=== PATIENT | female | born 1995 | race Caucasian/White ===

== ENCOUNTER → 2023-01-10 | Outpatient (CLI) | payer OTHER, SELFPAY ==
[2023-01-10 16:31] LABS: Absolute Lymphocyte Count 2.09 X10^3/uL (0.83-4.51); Absolute Neutrophil Count 2.4 X10^3/uL (2.0-7.7); Basophil# 0.06 X10^3/uL; Basophil% 1.2 % (0-1); Eosinophil# 0.32 X10^3/uL; Eosinophils% 6.2 % (0-5); Hematocrit 37.4 % (37-47); Hemoglobin 12.4 g/dL (12.0-15.0); Lymphocyte # 2.09 X10^3/ul (0.83-4.51); Lymphocyte % 40.2 % (19-41); Mean Corp Hgb Conc 33.2 g/dL (32-36); Mean Corpuscular Hgb 31.6 pg (27.0-32.0); Mean Corpuscular Volume 95.4 fL (81-99); Mean Platelet Vol. 9.8 fl (6.2-12.0); Monocyte# 0.34 X10^3/uL; Monocyte% 6.5 % (0-10); NRBC Flagged by Analyzer 0 % (0-5); Neutrophil # 2.38 X10^3/uL (2.7-7.7); Neutrophil % 45.7 % (47-70); Platelet Count 301 K/mm3 (150-450); RBC Distribution Width CV 12.7 % (11.6-14.6); RBC Distribution Width SD 44.3 fl (35.1-43.9); Red Blood Count 3.92 M/mm3 (4.2-5.4); White Blood Count 5.2 K/mm3 (4.4-11.0)
[2023-01-10 17:18] LABS: Vitamin D,25 Hydroxy 23.2 ng/mL
[2023-01-10 17:21] LABS: AST(SGOT) 11 U/L (15-37); Alanine Aminotransfer ALT/SGPT 18 U/L (13-56); Albumin, Serum 3.8 g/dL (3.2-5.0); Alkaline Phosphatase 66 U/L (45-117); Anion Gap 4 (5-15); BUN 9 mg/dL (7-18); BUN/Creat Ratio 13.4 RATIO (10-20); Calcium,Total 9.1 mg/dL (8.5-10.1); Chloride 109 mmol/L (98-107); Creatinine, Serum 0.67 mg/dL (0.55-1.02); EST Glomerular Filtration Rate 109 mL/min (>60); Est Glom Filt Rate - Afr Amer 132 mL/min (>60); Globulin 3.9 g/dL (2.2-4.2); Glucose 86 mg/dL (74-106); Protein, Total 7.7 g/dL (6.4-8.2); Sodium Level 138 mmol/L (136-145); Thyroid Stim Hormone (TSH) 1.53 uIU/mL (0.358-3.74)
== END | disposition home or self-care (01) ==
LOC: BIMLAB 16:07
PROVIDERS: Visit Provider Internal Medicine
DX: F32.A Depression, unspecified (principal); F41.9 Anxiety disorder, unspecified
CPT/HCPCS: 36415; 80053; 82306; 84443; 85025

== ENCOUNTER → 2023-08-24 | Outpatient (CLI) | payer OTHER, SELFPAY ==
--- OUTSIDE RECORDS SUMMARY | 2023-08-24 09:30 | XMS RPT_ITS | CCD ---
Author Name Unknown Address [facility] [place] [address] Organization [facility] Care Team Providers Care Lead Ramp Service Man Name Role Phone Aj CHAKRABORTY, Shanice Reeves Primary Care Provider Medications Current Medications Medication Drug Class(es) Dates Sig (Normalized) Sig (Original) NORGESTIMATE-ETHINY L ESTRADIOL (TRI-SPRINTEC, 28, ORAL) (1 source) End: 12-31-2021 NORGESTIMATE-ETHINYL ESTRADIOL (TRI-SPRINTEC, 28, ORAL) Take by mouth. 0 12/31/2021 Discontinued Completed/Discontinued Medications Medication Drug Class(es) Dates Sig (Normalized) Sig (Original) Ethinyl Estradiol / norgestimate (1 source) Progestin, Estrogen Start: 05-26-2021 Norgestimate-Ethin yl Estradiol (TRI-ESTARYLLA) 0.18/0.215/0.25 mg-35 mcg (28) Problems Problem Classification Problem Date Documented Da te Episodic/Chronic Immunizations and screening for infectious disease (5 sources) Patient encounter status; Translations: [Encounter for immunization] Episodic Other skin disorders (1 source) Skin lesion; Translations: [Disorder of the skin and subcutaneous tissue, unspecified] Episodic Results Test Name Value Interpretation Reference Range Facil ity Vital Signs Date Time Vital Sign Value Performing Clinician Luis romero 12-31-2021 07:59-0400 Body height 165.1 cm Brenna Gallo SOFTWARE ARCHITECT.BALL SORTER Work Phone: [facility] 12-31-2021 07:59-0400 Body weight 57.15 kg Brenna Gallo SOFTWARE ARCHITECT.BALL SORTER Work Phone: [facility] 12-31-2021 07:59-0400 Diastolic blood pressure 82 mm[Hg] Brenna Gallo SOFTWARE ARCHITECT.BALL SORTER Work Phone: [facility] 12-31-2021 07:59-0400 Heart rate 68 /min Brenna Gallo SOFTWARE ARCHITECT.BALL SORTER Work Phone: [facility] 12-31-2021 07:59-0400 Respiratory rate 16 /min Brenna Llamass SOFTWARE ARCHITECT.BALL SORTER Work Phone: [facility] 12-31-2021 07:59-0400 SaO2% (BldA) [Mass fraction] 100 % Brenna Gallo SOFTWARE ARCHITECT.BALL SORTER Work Phone: [facility] 12-31-2021 07:59-0400 Systolic blood pressure 120 mm[Hg] Brenna Gallo SOFTWARE ARCHITECT.BALL SORTER Work Phone: [facility] Encounters Encounter Date Encounter Type Care Provider Facility Start: 12-31-2021 End: 12-31-2021 Patient encounter procedure Brenna Gallo SOFTWARE ARCHITECT.BALL SORTER Work Phone: [facility] Procedures Date Procedure Procedure Detail Performing Clinician Start: 12-31-2021 Adult depression screening assessment Brenna Gallo SOFTWARE ARCHITECT.BALL SORTER Work Phone: Plan of Treatment Date Care Activity Detail Author Start: 12-31-2022 Adult depression scr eening assessment DEPRESSION SCREENING [facility] Start: 08-09-2022 COVID-19 VACCINE (#1) COVID-19 VACCI NE (#1) [facility] Payers Date Payer Category Payer Unknown [employer] PPO OOS [id number] 2018-Present [phone] [address] [place] [address] PPO [id number] Social History Date Type Detail Facility Start: 06-24-2014 Tobacco smoking stat us NMIS Never smoked tobacco [facility] Start: 06-24-2014 Tobacco use and exposure Smoke less tobacco non-user [facility] Start: 12-31-2021 Alcohol intake Current drinke r of alcohol (finding) [facility] Start: 12-31-2021 Alcohol intake [facility] Start: 12-24-2021 History SDOH Alcohol Frequency 3 [facility] Start: 12-24-2021 History SDOH Alcohol Std Drinks 2 [facility] Start: 12-24-2021 History SDOH Alcohol Binge 1 [facility] Start: 12-24-2021 History SDOH Social Connections Living 8 [facility] Start: 12-24-2021 History SDOH Stress 4 [facility] Start: 1995 Sex Assigned At Not on file [facility] Start: 12-21-2021 End: 12-31-2021 Exposure to SARS-CoV-2 (event) Not sure [facility] Work Phone: Progress note 01-14-2022 Note Date & Type Note Facility 01-14-2022 Note HNO ID: [id number] Author: Joy Munoz APRN.MIXING PLANT OPERATOR Service: ? Author Type: Nurse Practitioner Type: Progress Notes Filed: 01/14/2022 9:44 AM Note Text: Naveed is a 26 year old who presents for an annual gynecologic exam without complaints. -Last ESTIMATOR [facility] at [facility] when she was 19. She reports having a normal pap smear at that visit. -Mother diagnosed with stage 4 metastatic breast cancer at age 47. Mother at age 57. Moms sister also diagnosed with breast cancer. Menses: cycles every 21 days and extremely light 3-4 days of flow. Contraception: combined hormonal contraceptives HPV vaccine: No Last Pap: normal HPV: N/A History of abnormal pap: No Last mammogram: never Sexually active: Yes History of STDS: Chlamydia at age 18 Number of lifetime partners: 4 History of fibroids: No History of ovarian cyst: No History of endometriosis: No History of infertility: No History of PCOS: No History of dairy nutrition specialist malignancy: none Pain with intercourse: No Postcoital bleeding: No OB History T0 L0 SAB0 IAB0 Ectopic0 Multiple0 Live Births0 Oncology Nurse History LMP: 01/06/2022, Having periods Age at Menarche: Age at First : Age at Menopause: Oncology Nurse History Comments: Sexual Activity: Yes; Male Contraception: Pill PAST MEDICAL HISTORY Diagnosis Date - NEGATIVE HISTORY OF PAST SURGICAL HISTORY Procedure Laterality Date - NONE FAMILY HISTORY Problem Relation Age of Onset - Breast Cancer Mother age ~47 yo; now - No Known Problems Father SOCIAL HISTORY Social History Tobacco Use - Smoking status: Never Smoker - Smokeless tobacco: Never Used Vaping Use - Vaping Use: Never used Substance Use Topics - Alcohol use: Yes Alcohol/week: 4.0 standard drinks Types: 4 Glasses of Wine (5oz) per week - Drug use: Never REVIEW OF SYSTEMS Abdomen: No abdominal pain, nausea, vomiting, diarrhea, or constipation. No bloating, early satiety, indigestion, or increased flatulence. Bladder: No dysuria, gross hematuria, urinary frequency, urinary urgency, or incontinence. Breast: No breast lumps, nipple d/c, overlying skin changes, redness or skin retraction. Allergies and current medication updated:Yes EXAM: Ht 5' 4.5 (1.64m) Wt 130 lb 6.4 oz (59.1kg) LMP 01/06/2022 BMI 22.05 kg/(m2). GENERAL: pleasant, female in no apparent distress HEENT: Normocephalic, atraumatic, mucus membranes moist and no lesions NECK: full range of motion DERMATOLOGY: Normal, without lesions, non-icteric and non-hirsute BREAST: soft, non-tender, symmetric, no dominant mass, normal nipple-areolar complex, no lymphadenopathy and no nipple discharge CHEST: Normal inspiratory effort ABDOMEN: soft, non-tender and no masses PELVIC: external genitalia normal, normal Bartholin's glands, urethra, Opal's glands, no vulvar lesions, no cervical lesions, good vaginal support, physiologic discharge present, normal appearing perineal body and perianal region BIMANUAL: uterus normal size, shape and consistency, no adnexal masses and non-tender NEURO: alert and oriented x3,exam grossly non-focal EXTREMITIES: normal ASSESSMENT/PLAN: 1) Health maintenance: Pap done. Smoking cessation: Smoking cessation encouraged and resources provided. Patient does not smoke. HPV vaccine: discussed, not interested 2) Contraception: combined hormonal contraceptives. Contraceptive options reviewed and information provided. 3) STD screening: Accepted STD check for Gonorrhea and Chlamydia. 4) Follow up one year or sooner as needed -Discussed family history of breast cancer. -Genetic counseling ordered today. Pat Hyman. IN STORE BANKER student TEACHING PROVIDER (Physician/PA/SOFTWARE ARCHITECT) NOTE OF PERSONAL INVOLVEMENT IN CARE: I have personally seen and examined the patient and performed the medical decision-making components. I have reviewed the Advanced Practice Registered Nurse (SOFTWARE ARCHITECT) Student's documentation and verified the findings in the note as written. Any additions or changes are noted in bold/italics. Signature: Joy Munoz Date: 01/14/2022 Time: 9:43 AM [facility] Progress note 12-31-2021 Note Date & Type Note Facility 12-31-2021 Note HNO ID: [id number] Author: Brenna Gallo APRN.BALL SORTER Service: ? Author Type: Nurse Specialist Type: Progress Notes Filed: 12/31/2021 9:03 AM Note Text: SUBJECTIVE: COVID-19 VACCINE(1) Never done HEPATITIS C SCREENING Never done HIV SCREENING Never done DTAP,TDAP,TD(1 - Tdap) Never done PAP TESTING Never done HPI Naveed Daugherty is a 26 year old female. Has been seen at [facility] only, no other visits. Presents today to establish care at [facility]. Previous PCP:[facility] Last seen: 15 yrs ago [facility]: about 5 to 10 years ago Labwork: no recent ER/Hospitalization: no Outside records: no No ESTIMATOR Was [facility]. Going to [facility] grief counselor. Mom passed in June. She notes this is helping, not interested in medication at this time. She notes she is been generally in good health. Notes a small mole on the back of her neck present for a few months no changes not painful She notes completing all routine immunizations. Review of Systems Constitutional: Negative. Psychiatric/Behavioral: Positive for dysphoric mood. Objective BP 120/82 Pulse 68 Resp 16 Ht 165.1 cm (5' 5 ) Wt 57.2 kg (126 lb) LMP 10/02/2017 SpO2 100% BMI 20.97 kg/m? Physical Exam Vitals and nursing note reviewed. HENT: Head: Normocephalic and atraumatic. Eyes: Conjunctiva/sclera: Conjunctivae normal. Neck: Thyroid: No thyroid mass or thyromegaly. Vascular: Normal carotid pulses. No JVD. Cardiovascular: Rate and Rhythm: Normal rate and regular rhythm. Pulses: Carotid pulses are 2+ on the right side and 2+ on the left side. Radial pulses are 2+ on the right side and 2+ on the left side. Heart sounds: Normal heart sounds. Pulmonary: Effort: Pulmonary effort is normal. Breath sounds: Normal breath sounds. Musculoskeletal: Right lower leg: No edema. Left lower leg: No edema. Skin: General: Skin is warm and dry. Neurological: General: No focal deficit present. Mental Status: She is oriented to person, place, and time. ALLERGIES No Known Allergies Medications Norgestimate-Ethinyl Estradiol (TRI-ESTARYLLA) 0.18/0.215/0.25 mg-35 mcg (28), PAST MEDICAL HISTORY Diagnosis Date - NEGATIVE HISTORY OF PAST SURGICAL HISTORY Procedure Laterality Date - NONE Social History Tobacco Use - Smoking status: Never Smoker - Smokeless tobacco: Never Used Substance Use Topics - Alcohol use: Yes Alcohol/week: 4.0 standard drinks Types: 4 Glasses of Wine (5oz) per week - Drug use: Never FAMILY HISTORY Problem Relation Age of Onset - Breast Cancer Mother age ~47 yo - No Known Problems Father ASSESSMENT/PLAN: 1. Routine medical exam - ICD9: V70.0, ICD10: Z00.00 (primary diagnosis) Plant-based diet and routine exercise endorsed. 3. Special screening examination for viral disease - ICD9: V73.99, ICD10: Z11.59 - HEP C AB IA W/CONF SCRN 4. Screening for HIV (human immunodeficiency virus) - ICD9: V73.89, ICD10: Z11.4 - HIV 1 2 COMBO(AG/AB),WITH REFLEX TO DIFFERENTIATION 5. Well woman exam with routine gynecological exam - ICD9: V72.31, ICD10: Z01.419 - CONSULT TO ESTIMATOR 6. Encounter for screening for diabetes mellitus - ICD9: V77.1, ICD10: Z13.1 - BASIC METABOLIC PNL 7. Screening for lipid disorders - ICD9: V77.91, ICD10: Z13.220 - LIPID PANEL, NONFASTING 8. Skin lesion - ICD9: 709.9, ICD10: L98.9 - CONSULT TO DERMATOLOGY Labs today. 1 year follow-up with PCP. Brenna Gallo APRN.[facility] History of Present illness Narrative 12-31-2021 Brenna Gallo APRN.BALL SORTER - 12/31/2021 8:00 AM EDT Note Date & Type Note Facility 12-31-2021 History of Presen t illness Narrative SUBJECTIVE: COVID-19 VACCINE(1) Never done HEPATITIS C SCREENING Never done HIV SCREENING Never done DTAP,TDAP,TD(1 - Tdap) Never done PAP TESTING Never done HPI Naveed Daugherty is a 26 year old female. Has been seen at [facility] only, no other visits. Presents today to establish care at [facility]. Previous PCP:[facility] Last seen: 15 yrs ago [facility]: about 5 to 10 years ago Labwork: no recent ER/Hospitalization: no Outside records: no No ESTIMATOR [facility]. Going to [facility] grief counselor. Mom passed in June. She notes this is helping, not interested in medication at this time. She notes she is been generally in good health. Notes a small mole on the back of her neck present for a few months no changes not painful She notes completing all routine immunizations. Review of Systems Constitutional: Negative. Psychiatric/Behavioral: Positive for dysphoric mood. Objective BP 120/82 Pulse 68 Resp 16 Ht 165.1 cm (5' 5 ) Wt 57.2 kg (126 lb) LMP 10/02/2017 SpO2 100% BMI 20.97 kg/m Physical Exam Vitals and nursing note reviewed. HENT: Head: Normocephalic and atraumatic. Eyes: Conjunctiva/sclera: Conjunctivae normal. Neck: Thyroid: No thyroid mass or thyromegaly. Vascular: Normal carotid pulses. No JVD. Cardiovascular: Rate and Rhythm: Normal rate and regular rhythm. Pulses: Carotid pulses are 2+ on the right side and 2+ on the left side. Radial pulses are 2+ on the right side and 2+ on the left side. Heart sounds: Normal heart sounds. Pulmonary: Effort: Pulmonary effort is normal. Breath sounds: Normal breath sounds. Musculoskeletal: Right lower leg: No edema. Left lower leg: No edema. Skin: General: Skin is warm and dry. Neurological: General: No focal deficit present. Mental Status: She is oriented to person, place, and time. ALLERGIES No Known Allergies Medications Norgestimate-Ethinyl Estradiol (TRI-ESTARYLLA) 0.18/0.215/0.25 mg-35 mcg (28), PAST MEDICAL HISTORY Diagnosis Date NEGATIVE HISTORY OF PAST SURGICAL HISTORY Procedure Laterality Date NONE Social History Tobacco Use Smoking status: Never Smoker Smokeless tobacco: Never Used Substance Use Topics Alcohol use: Yes Alcohol/week: 4.0 standard drinks Types: 4 Glasses of Wine (5oz) per week Drug use: Never FAMILY HISTORY Problem Relation Age of Onset Breast Cancer Mother age ~47 yo No Known Problems Father ASSESSMENT/PLAN: 1. Routine medical exam - ICD9: V70.0, ICD10: Z00.00 (primary diagnosis) Plant-based diet and routine exercise endorsed. 3. Special screening examination for viral disease - ICD9: V73.99, ICD10: Z11.59 - HEP C AB IA W/CONF SCRN 4. Screening for HIV (human immunodeficiency virus) - ICD9: V73.89, ICD10: Z11.4 - HIV 1 2 COMBO(AG/AB),WITH REFLEX TO DIFFERENTIATION 5. Well woman exam with routine gynecological exam - ICD9: V72.31, ICD10: Z01.419 - CONSULT TO ESTIMATOR 6. Encounter for screening for diabetes mellitus - ICD9: V77.1, ICD10: Z13.1 - BASIC METABOLIC PNL 7. Screening for lipid disorders - ICD9: V77.91, ICD10: Z13.220 - LIPID PANEL, NONFASTING 8. Skin lesion - ICD9: 709.9, ICD10: L98.9 - CONSULT TO DERMATOLOGY Labs today. 1 year follow-up with PCP. Brenna Gallo APRN.CNS documented in this encounter [facility] Evaluation note Note Date & Type Note Facility documented in this encounter [facility] Reason for Referral Specialty Diagnoses / Procedures Referred By Monica powers Referred To Contact Dermatology Diagnoses Skin lesion Procedures CONSULT TO DERMATOLOGY Brenna Gallo APRN.CNS [address] [place] [address] Referral ID Status Reason Start Date Expiration Date Visits Requested Visits Authorized [id number] Ref Not Required PCP Requested Referral 12/31/2021 12/31/2022 1 1 Specialty Diagnoses / Procedures Referred By Contac t Referred To Contact Diagnoses Well woman exam with routine gynecological exam Procedures CONSULT TO ESTIMATOR OFFICE/OUTPATIENT NEW HIGH MDM 60-74 MINUTES Brenna Gallo, SOFTWARE ARCHITECT.BALL SORTER [address] [place] [address] Referral ID Status Reason Start Date Expiration Date Visits Requested Visits Authorized [id number] Authorized PCP Requested Referral Auto-Generate d Referral 12/31/2021 12/31/2022 1 1 Summary Purpose Family History No Family History Records Found Advance Directives No Advanced Directives Records Found Additional Source Comments Source Comments (unrecognize d section and content) In the event this informatio n is protected by the Federal Confidentiality of Alcohol and Drug Abuse Patient Records regulations: The Federal rules restrict any use of the information to criminally investigate or prosecute any alcohol or drug abuse patient.[facility] Reason for Visit (unrecogniz ed section and content) Care Teams (unrecognized sec tion and content) INFORMATION SOURCE (unrecogn ized section and content) FOR RECORDS PERTAINING TO PATIENTS WHO ARE OR HAVE BEEN ENROLLED IN A CHEMICAL DEPENDENCY/SUBSTANCEABUSE PROGRAM, SOME INFORMATION MAY BE OMITTED. This clinical summary was aggregated from multiple sources. Caution should be exercised in using it in the provision of clinical care. This summary normalizes information from multiple sources, and as a consequence, information in this document may materially change the coding, format and clinical context of patient data. In addition, data may be omitted in some cases. CLINICAL DECISIONS SHOULD BE BASED ON THE PRIMARY CLINICAL RECORDS. [employer] provides no warranty or guarantee of the accuracy or completeness of information in this document.
[2023-08-24 12:22] LABS: Erythrocyte Sedimentation Rate 4 mm/hr (0-30)
[2023-08-24 12:55] LABS: Vitamin D,25 Hydroxy 23.4 ng/mL
[2023-08-24 12:58] LABS: Anion Gap 5 (5-15); BUN 8 mg/dL (7-18); BUN/Creat Ratio 10.1 RATIO (10-20); CRP < 2.90 mg/L (0.0-3.0); Chloride 107 mmol/L (98-107); EST Glomerular Filtration Rate 90 mL/min (>60); Est Glom Filt Rate - Afr Amer 109 mL/min (>60); Glucose 66 mg/dL (74-106); Magnesium 2.3 mg/dL (1.6-2.6); Potassium 3.8 mmol/L (3.5-5.1); Sodium Level 138 mmol/L (136-145)
[2023-08-25 11:08] LABS: ANTINUCLEAR ANTIBODIES DIRECT Negative (Negative)
== END | disposition home or self-care (01) ==
LOC: BIMLAB 09:00
PROVIDERS: Nurse Practitioner Women's Health; PCP Internal Medicine; Visit Provider Internal Medicine
DX: M25.50 Pain in unspecified joint (principal); Z13.21 Encounter for screening for nutritional disorder
CPT/HCPCS: 36415; 80048; 82306; 83735; 85652; 86038; 86140; 86225; 86235

== ENCOUNTER → 2024-02-20 | Outpatient (CLI) | payer OTHER, SELFPAY ==
[2024-02-20 12:01] LABS: Absolute Lymphocyte Count 1.77 X10^3/uL (0.83-4.51); Absolute Neutrophil Count 1.8 X10^3/uL (2.0-7.7); Basophil# 0.05 X10^3/uL; Basophil% 1.2 % (0-1); Eosinophil# 0.38 X10^3/uL; Eosinophils% 8.9 % (0-5); Hematocrit 37.7 % (37-47); Hemoglobin 11.9 g/dL (12.0-15.0); Lymphocyte # 1.77 X10^3/ul (0.83-4.51); Lymphocyte % 41.4 % (19-41); Mean Corp Hgb Conc 31.6 g/dL (32-36); Mean Corpuscular Hgb 29.8 pg (27.0-32.0); Mean Corpuscular Volume 94.5 fL (81-99); Mean Platelet Vol. 10.4 fl (6.2-12.0); NRBC Flagged by Analyzer 0 % (0-5); Neutrophil # 1.77 X10^3/uL (2.7-7.7); Neutrophil % 41.3 % (47-70); Platelet Count 309 K/mm3 (150-450); RBC Distribution Width CV 12.9 % (11.6-14.6); RBC Distribution Width SD 44.6 fl (35.1-43.9); Red Blood Count 3.99 M/mm3 (4.2-5.4); White Blood Count 4.3 K/mm3 (4.4-11.0)
[2024-02-20 12:31] LABS: Vitamin D,25 Hydroxy 31.8 ng/mL
[2024-02-20 13:49] LABS: ALB/GLOB Ratio 0.9 RATIO (0.9-2.4); AST(SGOT) 18 U/L (15-37); Alanine Aminotransfer ALT/SGPT 13 U/L (13-56); Albumin, Serum 3.5 g/dL (3.2-5.0); Alkaline Phosphatase 68 U/L (45-117); Anion Gap 8 (5-15); BUN 10 mg/dL (7-18); BUN/Creat Ratio 12.9 RATIO (10-20); CPK Total, Creatine Kinase 72 U/L (26-192); Calcium,Total 9.3 mg/dL (8.5-10.1); Chloride 105 mmol/L (98-107); Creatinine, Serum 0.77 mg/dL (0.55-1.02); EST Glomerular Filtration Rate 93 mL/min (>60); Est Glom Filt Rate - Afr Amer 112 mL/min (>60); Globulin 3.8 g/dL (2.2-4.2); Glucose 76 mg/dL (74-106); Potassium 4.5 mmol/L (3.5-5.1); Protein, Total 7.3 g/dL (6.4-8.2); Rheumatoid Factor < 10.0 IU/mL (<15); Sodium Level 137 mmol/L (136-145)
[2024-02-21 15:09] LABS: CCP IgG Antibodies 4 units (0-19); Lyme Scn Total Ab w/Rflx Negative (Negative)
== END | disposition home or self-care (01) ==
LOC: BIMLAB 09:54
PROVIDERS: Obstetrics & Gynecology; PCP Internal Medicine; Referring Provider Internal Medicine; Visit Provider Internal Medicine
DX: M25.50 Pain in unspecified joint (principal); E55.9 Vitamin D deficiency, unspecified
CPT/HCPCS: 36415; 80053; 82306; 82550; 85025; 86200; 86431; 86618

== ENCOUNTER → 2025-02-20 | Outpatient (CLI) | payer OTHER, SELFPAY ==
--- NOTE | 2025-02-20 09:36 | EKG12_ITS ---
Test Reason : PREOP Blood Pressure : */* mmHG Vent. Rate : 70 BPM Atrial Rate : 70 BPM P-R Int : 130 ms QRS Dur : 68 ms QT Int : 362 ms P-R-T Axes : 48 81 42 degrees QTcB Int : 390 ms Normal sinus rhythm Normal ECG No previous ECGs available Confirmed by Eduardo Hodges ([id number]), editorial assistant ANG GIBBONS ([id number]) on 02/21/2025 8:32:41 AM Referred By: Karen Wall Confirmed By: Eduardo Hodges
--- NOTE | 2025-02-20 09:36 | EKG12_ITS ---
Test Reason : PREOP Blood Pressure : */* mmHG Vent. Rate : 70 BPM Atrial Rate : 70 BPM P-R Int : 130 ms QRS Dur : 68 ms QT Int : 362 ms P-R-T Axes : 48 81 42 degrees QTcB Int : 390 ms Normal sinus rhythm Normal ECG No previous ECGs available Confirmed by Eduardo Hodges ([id number]), editorial cartoonist ANG GIBBONS ([id number]) on 02/21/2025 8:32:41 AM Referred By: Karen Wall Confirmed By: Eduardo Hodges
--- NOTE | 2025-02-20 09:55 | RAD_ITS ---
PROCEDURE: CERV SPINE 4 OR 5 VIEWS 02/20/2025 REASON FOR EXAM: CHRONIC PAIN TECHNIQUE: CERV SPINE 4 OR 5 VIEWS COMPARISON: None. FINDINGS: No evidence of fracture or subluxation. Vertebral body heights are preserved. Alignment is anatomic, although there is straightening of the cervical lordosis which may be positional or secondary to muscle strain. No significant degenerative changes appreciated, well preserved disc spaces. No prevertebral soft tissue swelling. No unusual mineralization. RAD/Cerv Spine 4 or 5 Views IMPRESSION: No evidence of fracture, subluxation or significant degenerative changes. Straightening of the cervical lordosis may be positional or related to muscle s pasm. Reading Location: [id number]
--- NOTE | 2025-02-20 09:55 | RAD_ITS ---
PROCEDURE: CERV SPINE 4 OR 5 VIEWS 02/20/2025 REASON FOR EXAM: CHRONIC PAIN TECHNIQUE: CERV SPINE 4 OR 5 VIEWS COMPARISON: None. FINDINGS: No evidence of fracture or subluxation. Vertebral body heights are preserved. Alignment is anatomic, although there is straightening of the cervical lordosis which may be positional or secondary to muscle strain. No significant degenerative changes appreciated, well preserved disc spaces. No prevertebral soft tissue swelling. No unusual mineralization. RAD/Cerv Spine 4 or 5 Views IMPRESSION: No evidence of fracture, subluxation or significant degenerative changes. Straightening of the cervical lordosis may be positional or related to muscle s pasm. Reading Location: [id number]
[2025-02-20 10:24] LABS: Hematocrit 36.7 % (37-47); Hemoglobin 12.6 g/dL (12.0-15.0); Immature Granulocytes Count 0.010 X10^3/uL (0.0-0.0); Mean Corp Hgb Conc 34.3 g/dL (32-36); Mean Corpuscular Volume 92.9 fL (81-99); Mean Platelet Vol. 9.9 fl (6.2-12.0); NRBC Flagged by Analyzer 0 % (0-5); Platelet Count 272 K/mm3 (150-450); RBC Distribution Width CV 12.7 % (11.6-14.6); RBC Distribution Width SD 43.2 fl (35.1-43.9); Red Blood Count 3.95 M/mm3 (4.2-5.4); White Blood Count 5.2 K/mm3 (4.4-11.0)
[2025-02-20 14:27] LABS: AST(SGOT) 26 U/L (<=31); Alanine Aminotransfer ALT/SGPT 32 U/L (<=34); Albumin, Serum 4.6 g/dL (3.5-5.0); Alkaline Phosphatase 71 U/L (35-104); Anion Gap 10 (5-15); BUN 9 mg/dL (4-19); BUN/Creat Ratio 13.9 RATIO (10-20); Calcium,Total 9.5 mg/dL (7.6-11.0); Carbon Dioxide 23.0 mmol/L (21.0-32.0); Chloride 103 mmol/L (98-108); Globulin 2.9 g/dL (2.2-4.2); Glucose 87 mg/dL (70-99); Potassium 4.3 mmol/L (3.3-5.1); Vitamin D,25 Hydroxy 17.1 ng/mL (30-100)
--- OUTSIDE RECORDS SUMMARY | 2025-02-20 19:18 | XMS RPT_ITS | CCD ---
Author Organization [facility] Care Team Providers Care Windows Desktop Support Name Role Phone Shanice Rocha MD Primary Care Provider Care Physician, No Primary Primary Care Provider Unavailable Care Physician, No Primary Referring Provider Un available Dr. Karen Wall Attending Provider Care Physician, No Primary Referring Provider Un available Olaf PACKAGE LINER, CHRISTY Mccauley Attending Provider [phone] Dr. Karen Wall Primary Care Provider Dr. Karen Wall Attending Provider Dr. Karen Wall Referring Provider [phone] Mae, Karen Primary Care Unavailable [place], Karen Attending Unavailable [place], Karen Referring Unavailable Mae, Karen Primary Care Unavailable [place], Karen Attending Unavailable Mae, Karen Primary Care Unavailable [place], Karen Attending Unavailable Mae, Karen Referring Unavailable [place], Karen Referring Unavailable Mae, Karen Primary Care Unavailable [place], Karen Attending Unavailable [place], Karen Primary Care Unavailable Parisa Babin Attending Unavailable Mae, Karen Referring Unavailable Dr. Karen Wall MD Primary Care Provider [phone] Dr. Karen Wall MD Attending Provider Dr. Karen Wall MD Referring Provider Medications Current Medications Medication Drug Class(es) Dates Sig (Normalized) Sig (Original) [place] (Nk) (1 source) Start: 07-03-2024 [place] (Nk) Active July 03, 2024 1:00am NORGESTIMATE-ETHINYL ESTRADIOL (TRI-SPRINTEC, 28, ORAL) (1 source) End: 12-31-2021 NORGESTIMATE-ETHINYL ESTRADIOL (TRI-SPRINTEC, 28, ORAL) Take by mouth. 0 12/31/2021 Discontinued Comment on above: Take by mouth. phenazopyridine hydrochloride 200 mg oral tablet (1 source) Start: 09-09-2016 End: 12-31-2021 take 1 tablet by mouth three times daily phenazopyridine (PYRIDIUM) 200 mg tablet TO BE TAKEN DIRECTED BY MOUTH ONE(1) TABLET THREE TIMES DAILY X 2 DAYS 6 tablet 0 09/09/2016 12/31/2021 Discontinued Comment on above: TO BE TAKEN DIREC CRISTÓBAL BY MOUTH ONE(1) TABLET THREE TIMES DAILY X 2 DAYS Completed/Discontinued Medications Medication Drug Class(es) Dates Sig (Normalized) Sig (Original) escitalopram 5 mg oral tablet (9 sources) Serotonin Reuptake Inhibitor Start: 01-10-2023 End: 07-03-2024 take 1 tablet by mouth once daily Escitalopram Oxalate (Lexapro) 5 mg tablet Discontinued 5 mg PO DAILY 10 August 19, 2023 1:59pm August 24, 2023 9:58am Depression Depression, unspecified Norgestimate-Ethiny l Estradiol (6 sources) Progestin, Estrogen Start: 06-27-2023 End: 07-03-2024 Norgestimate-Ethiny l Estradiol (Tri-Estarylla) 0.18/0.215/0.25 mg-35 mcg (28) tablet Discontinued 1 {tbl} PO DAILY June 27, 2023 11:11am July 03, 2024 11:06am Start: 06-27-2023 take 1 tablet by calos once daily Norgestimate-Ethinyl Estradiol (Tri-Estarylla) 0.18/0.215/0.25 mg-35 mcg (28) tablet Active 1 TABLET PO DAILY June 27, 2023 10:11am Start: 01-10-2023 End: 06-27-2023 Norgestimate-Ethinyl Estradi ol (Tri-Estarylla) 0.18/0.215/0.25 mg-35 mcg (28) tablet Discontinued 1 {tbl} PO DAILY January 10, 2023 12:00am June 27, 2023 11:12am Start: 01-10-2023 End: 06-27-2023 take 1 tablet by mouth once daily Norgestimate-Ethinyl Estradiol (Tri-Estarylla) 0.18/0.215/0.25 mg-35 mcg (28) tablet Discontinued 1 TABLET PO DAILY January 09, 2023 11:00pm June 27, 2023 10:12am Start: 01-10-2023 take 1 tablet by calos th once daily Norgestimate-Ethinyl Estradiol (Tri-Estarylla) 0.18/0.215/0.25 mg-35 mcg (28) tablet Active 1 TABLET PO DAILY January 10, 2023 12:00am Start: 05-26-2021 Norgestimate-E thinyl Estradiol (TRI-ESTARYLLA) 0.18/0.215/0.25 mg-35 mcg (28) Problems Active Problems Problem Classification Problem Date Documented Date Episodic/Chronic Administrative/social admission (1 source) Persons encountering health services in other specified circumstances; Translations: [Other reasons for seeking consultation] 01-10-2023 Episodic Anxiety disorders (4 sources) Anxiety disorder, unspecified; Translations: [Anxiety state, unspecified] Onset: 02-20-2024 01-10-2023 Chronic Contraceptive and procreative management (2 sources) Encounter for surveillance of contraceptive pills; Translations: [Surveillance of contraceptive pill] 01-10-2023 Episodic Genitourinary symptoms and ill-defined conditions (3 sources) History of urinary tract infection; Translations: [Personal history of urinary (tract) infections] 01-10-2023 Episodic Immunizations and screening for infectious disease (6 sources) Patient encounter status; Translations: [Encounter for immunization] Episodic Menstrual disorders (1 source) Amenorrhea, unspecified; Translations: [Amenorrhea, unspecified] Onset: 07-03-2024 Chronic Mood disorders (5 sources) Moderately severe depression; 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] 01-10-2023 Chronic Mood disorders (1 source) Mood disorders; Translations: [Depression, unspecified] Onset: 02-20-2024 Nutritional deficiencies (4 sources) Vitamin D deficiency; Translations: [Vitamin D deficiency, unspecified] 02-21-2023 Chronic Other nervous system disorders (1 source) Other chronic pain; Translations: [Other chronic pain] Onset: 08-24-2023 Chronic Other nervous system disorders (3 sources) H/O: migraine; Translations: [Personal history of other diseases of the nervous system and sense organs] 01-10-2023 Episodic Other non-traumatic joint disorders (1 source) Multiple joint pain; Translations: [Pain in unspecified joint] 02-20-2025 Episodic Other skin disorders (1 source) Skin lesion; Translations: [Disorder of the skin and subcutaneous tissue, unspecified] Episodic Residual codes; unclassified (2 sources) Abnormal cytology findings; Translations: [ASCUS favor benign] 06-28-2023 Episodic Comment on above: 01/2022 [facility] scan to angel roach: ASCUS neg HPV: rpt 3 years Residual codes; unclassified (2 sources) Family history of malignant neoplasm of breast in first degree relative; Translations: [Family history of malignant neoplasm of breast] 06-27-2023 Episodic Comment on above: Mom dx age 47. decea sed. Mom's genetics negative. Mat aunt also. Offered [facility] genetic testing, declines. Residual codes; unclassified (1 source) Family history of malignant neoplasm of breast; Translations: [Family history of malignant neoplasm of breast] 06-27-2023 Episodic Residual codes; unclassified (1 source) Immunization not carried out because of patient refusal; Translations: [Vaccination not carried out because of patient refusal] 08-24-2023 Episodic Spondylosis; intervertebral disc disorders; other back problems (4 sources) Cervicalgia; Translations: [Cervicalgia] Onset: 08-24-2023 01-10-2023 Episodic Past or Other Problems Problem Classification Problem Date Documented Da te Episodic/Chronic Other non-traumatic joint disorders (2 sources) Pain in unspecified joint; Translations: [Pain in joint, multiple sites] Onset: 03-07-2024 08-24-2023 Episodic Results Test Name Value Interpretation Reference Range Facil ity Survey Chief Office Visit Reporton 07-03-2024 Survey Chief Office Visit Report [facility] [address], [address] [place] [address] OFFICE VISIT Date of Service: 07/03/24 MR#: [id number] Acct: [id number] Name: NAVEED DAUGHERTY #: [id number] : 1995 Provider: CHRISTY jerome Age/Sex: 29/F Location: [facility] [place], [place] Status: Signed Intake Vital Signs 06/27/23 10:02 02/20/24 09:04 07/03/24 09:59 07/03/24 10:06 Height 5 ft 4 in 5 ft 4 in 5 ft 4 in 5 ft 4 in Weight: 151 lb 6 oz BMI 25.9 BP 114/82 H 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: 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: No Is patient in pain?: No Allergies No Known Allergies Allergy (Unverified 07/03/24 09:58) Medications ???Medication ???Instructions ???Recorded ???Confirmed ???Type NK 07/03/24 07/03/24 History Is last menstrual period known: Yes Last Menstrual Period: 05/22/24 Post menopausal: No Patient : No : No PFSH Medical History History of migraine headaches Hx: UTI (urinary tract infection) Surgical History No pertinent past surgical history Family History Mother Breast cancer 45 Depression Seizures Father Depression Grandfather CVA (cerebral vascular accident) Social History household members: significant other current occupational status: employed 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 Denies concerns. No menses since 05/22. Partner with vasectomy so stopped OCP in March and did have normal menses in April and May. Last PAP: 2021 History of abnormal PAP: no Last mammogram: start age 33 Other preventative health care screenings: [facility] Female Reproductive History Last Menstrual Period: 05/22/24 ROS Const Constitutional: Denies fatigue, weight gain or weight loss Cardio Card: Denies chest pain Resp Resp: Denies cough or dyspnea on exertion GI GI: Denies abdominal pain, bloating, change in stool character, constipation or vomiting : Reports as per HPI; Denies difficulty voiding, pelvic pain, urinary frequency, urinary incontinence, urinary urgency, vaginal discharge or vaginal pruritus Exam Const General: cooperative, healthy appearing, no acute distress and well developed Orientation: alert, oriented to person and oriented to place HENPR Head: normal to inspection Neck Neck: normal visual inspection Thyroid: thyroid normal Lymphatic: no lymphadenopathy noted Chest Breast inspection: normal inspection of the breasts and normal inspection of the axillae Breast palpation: normal palpation of the breasts, normal palpation of the axillae and no axillary lymphadenopathy Resp Effort Inspection: normal respiratory effort GI Palpation: soft, no masses and nontender Rectal Exam: deferred External Female Exam: normal external appearance and normal appearance of the urethra Urethra: normal appearance of the urethra and normal palpation Speculum Exam - Vagina: normal appearance of the vagina and normal vaginal discharge Speculum Exam - Cervix: normal appearance of the cervix Bimanual Exam- Vagina Uterus: normal bimanual exam, uterine size normal, uterine shape normal and non-tender Bimanual Exam- Adnexa, other: normal adnexae, no masses, normal and non-tender Pelvic Support: normal Neuro General: patient alert and patient oriented x3 Psych Affect: normal affect Results POC Urine Office , Urine Negative Last Edit by Carlene Mendoza on 07/03/24 10:20 Coding Level of Care Code Off vis,est,prev 18-39yrs Diagnoses Encounter for gynecological examination with abnormal finding Z01.411 Gynecological examination findings: abnormal findings PRESENT ASCUS favor benign Family history of breast cancer in mother Z80.3 Missed menses N92.6 Assessment and Plan Assessment and Plan (1) Encounter for routine gynecological examination: Qualifiers: Gynecological examination findings: abnormal findings PRESENT Qualified Code(s): Z01.411 - Encounter for gynecological examination (general) (routine (more content not included)... Normal [facility] CCP IgG Antibodieson 02-20-2 024 CCP IgG Ab. 4 units Normal 0-19 [facility] Comment on above: Result Comment: Nega tive <20 Weak positive 20 - 39 Moderate positive 40 - 59 Strong positive >59 Performed at: [address] [id number] Lipstick Molder: Anthony Sanchez PhD, Phone: [phone] Performed By: #### L 7000.5300, L501.3620, L100.0100, L505.7010, L4600.0100, L500.4050 #### [facility] [address] [place], [address] Lyme Screen W/Reflex WBon LYME SCREEN Ab Negative Normal Negative [facility] Comment on above: Result Comment: Lyme antibodies not detected. Reflex testing is not indicated. No laboratory evidence of infection with B. burgdorferi (Lyme disease). Negative results may occur in patients recently infected (less than or equal to 14 days) with B. burgdorferi. If recent infection is suspected, repeat testing on a new sample collected in 7 to 14 days is recommended. Performed By: #### L 7000.5300, L501.3620, L100.0100, L505.7010, L4600.0100, L500.4050 #### [facility] [address] [place], [address] CBC W/Diff, Automatedon 02-05 Absolute Lymph 1.77 X10 3/uL Normal 0.83-4.51 [facility] Comment on above: Performed By: #### L 7000.5300, L501.3620, L100.0100, L505.7010, L4600.0100, L500.4050 #### [facility] [address] [place], [address] Absolute Neut 1.8 X10 3/uL Low 2.0-7.7 [facility] Comment on above: Performed By: #### L 7000.5300, L501.3620, L100.0100, L505.7010, L4600.0100, L500.4050 #### [facility] [address] [place], [address] Basophils/100 WBC (Bld) 1.2 % High 0-1 [facility] Comment on above: Performed By: #### L 7000.5300, L501.3620, L100.0100, L505.7010, L4600.0100, L500.4050 #### [facility] [address] [place], [address] Eosinophils/100 WBC (Bld) 8.9 % High 0-5 [facility] Comment on above: Performed By: #### L 7000.5300, L501.3620, L100.0100, L505.7010, L4600.0100, L500.4050 #### [facility] [address] [place], [address] Erythrocyte distribution width (RBC) [Ratio] 12.9 % Normal 11.6-14.6 [facility] Comment on above: Performed By: #### L 7000.5300, L501.3620, L100.0100, L505.7010, L4600.0100, L500.4050 #### [facility] [address] [place], [address] Hematocrit (Bld) [Volume fraction] 37.7 % Normal 37-47 [facility] Comment on above: Performed By: #### L 7000.5300, L501.3620, L100.0100, L505.7010, L4600.0100, L500.4050 #### [facility] [address] [place], [address] Hemoglobin (Bld) [Mass/Vol] 11.9 g/dL Low 12.0-15.0 [facility] Comment on above: Performed By: #### L 7000.5300, L501.3620, L100.0100, L505.7010, L4600.0100, L500.4050 #### [facility] [address] [place], [address] IG% 0.200 Normal 0.0-0.9 [facility] Comment on above: Result Comment: IG% - Immature Granulocytes (promyelocytes, myelocytes and metamyelocytes) > 1% indicates that a LEFT SHIFT is Present. Performed By: #### L 7000.5300, L501.3620, L100.0100, L505.7010, L4600.0100, L500.4050 #### [facility] [address] [place], [address] Lymphocytes/100 WBC (Bld) 41.4 % High 19-41 [facility] Comment on above: Performed By: #### L 7000.5300, L501.3620, L100.0100, L505.7010, L4600.0100, L500.4050 #### [facility] [address] [place], [address] MCH (RBC) [Entitic mass] 29.8 pg Normal 27.0-32.0 [facility] Comment on above: Performed By: #### L 7000.5300, L501.3620, L100.0100, L505.7010, L4600.0100, L500.4050 #### [facility] [address] [place], [address] MCHC (RBC) [Mass/Vol] 31.6 g/dL Low 32-36 [facility] Comment on above: Performed By: #### L 7000.5300, L501.3620, L100.0100, L505.7010, L4600.0100, L500.4050 #### [facility] [address] [place], [address] MCV (RBC) [Entitic vol] 94.5 fL Normal 81-99 [facility] Comment on above: Performed By: #### L 7000.5300, L501.3620, L100.0100, L505.7010, L4600.0100, L500.4050 #### [facility] [address] [place], [address] Monocytes/100 WBC (Bld) 7.0 % Normal 0-10 [facility] Comment on above: Performed By: #### L 7000.5300, L501.3620, L100.0100, L505.7010, L4600.0100, L500.4050 #### [facility] [address] [place], [address] Neutrophils/100 WBC (Bld) 41.3 % Low 47-70 [facility] Comment on above: Performed By: #### L 7000.5300, L501.3620, L100.0100, L505.7010, L4600.0100, L500.4050 #### [facility] [address] [place], [address] Nucleated RBC (Bld) [#/Vol] 0 10*3/uL Normal 0-5 [facility] Comment on above: Performed By: #### L 7000.5300, L501.3620, L100.0100, L505.7010, L4600.0100, L500.4050 #### [facility] [address] [place], [address] Platelet mean volume (Bld) [Entitic vol] 10.4 fL Normal 6.2-12.0 [facility] Comment on above: Performed By: #### L 7000.5300, L501.3620, L100.0100, L505.7010, L4600.0100, L500.4050 #### [facility] [address] [place], [address] Platelets (Bld) [#/Vol] 309 10*3/uL Normal 150-450 [facility] Comment on above: Performed By: #### L 7000.5300, L501.3620, L100.0100, L505.7010, L4600.0100, L500.4050 #### [facility] [address] [place], [address] RBC (Bld) [#/Vol] 3.99 10*6/uL Low 4.2-5.4 [facility] Comment on above: Performed By: #### L 7000.5300, L501.3620, L100.0100, L505.7010, L4600.0100, L500.4050 #### [facility] [address] [place], [address] RDW SD 44.6 fl High 35.1-43.9 [facility] Comment on above: Performed By: #### L 7000.5300, L501.3620, L100.0100, L505.7010, L4600.0100, L500.4050 #### [facility] [address] [place], [address] WBC (Bld) [#/Vol] 4.3 10*3/uL Low 4.4-11.0 [facility] Comment on above: Performed By: #### L 7000.5300, L501.3620, L100.0100, L505.7010, L4600.0100, L500.4050 #### [facility] [address] [place], [address] CPK Total, Creatine Kinaseon 02-20-2024 CPK TOTAL 72 U/L Normal 26-192 [facility] Comment on above: Performed By: #### L 7000.5300, L501.3620, L100.0100, L505.7010, L4600.0100, L500.4050 #### [facility] [address] [place], [address] Comprehensive Metabolic Prof ilon 02-20-2024 Albumin [Mass/Vol] 3.5 g/dL Normal 3.2-5.0 [facility] Comment on above: Performed By: #### L 7000.5300, L501.3620, L100.0100, L505.7010, L4600.0100, L500.4050 #### [facility] [address] [place], [address] Albumin/Globulin [Mass ratio] 0.9 {ratio} Normal 0.9-2.4 [facility] Comment on above: Performed By: #### L 7000.5300, L501.3620, L100.0100, L505.7010, L4600.0100, L500.4050 #### [facility] [address] [place], [address] ALK P 68 U/L Normal 45-117 [facility] Comment on above: Performed By: #### L 7000.5300, L501.3620, L100.0100, L505.7010, L4600.0100, L500.4050 #### [facility] [address] [place], [address] ALT [Catalytic activity/Vol] 13 U/L Normal 13-56 [facility] Comment on above: Performed By: #### L 7000.5300, L501.3620, L100.0100, L505.7010, L4600.0100, L500.4050 #### [facility] [address] [place], [address] AST [Catalytic activity/Vol] 18 U/L Normal 15-37 [facility] Comment on above: Performed By: #### L 7000.5300, L501.3620, L100.0100, L505.7010, L4600.0100, L500.4050 #### [facility] [address] [place], [address] Bilirubin [Mass/Vol] 0.30 mg/dL Normal 0.20-1.00 [facility] Comment on above: Result Comment: For patients on eltrombopag therapy, use of Dimension [place] TBIL is not recommended. Performed By: #### L 7000.5300, L501.3620, L100.0100, L505.7010, L4600.0100, L500.4050 #### [facility] [address] [place], [address] BUN/CRE 12.9 RATIO Normal 10-20 [facility] Comment on above: Performed By: #### L 7000.5300, L501.3620, L100.0100, L505.7010, L4600.0100, L500.4050 #### [facility] [address] [place], [address] CA,Total 9.3 mg/dL Normal 8.5-10.1 [facility] Comment on above: Performed By: #### L 7000.5300, L501.3620, L100.0100, L505.7010, L4600.0100, L500.4050 #### [facility] [address] [place], [address] Chloride [Moles/Vol] 105 mmol/L Normal 98-107 [facility] Comment on above: Performed By: #### L 7000.5300, L501.3620, L100.0100, L505.7010, L4600.0100, L500.4050 #### [facility] [address] [place], [address] CO2 [Moles/Vol] 24.0 mmol/L Normal 21.0-32.0 [facility] Comment on above: Performed By: #### L 7000.5300, L501.3620, L100.0100, L505.7010, L4600.0100, L500.4050 #### [facility] [address] [place], [address] Creatinine [Mass/Vol] 0.77 mg/dL Normal 0.55-1.02 [facility] Comment on above: Result Comment: The validity of the calculated GFR GFRAA in patients over 70 years has not been determined. Clinical correlation is essential. Performed By: #### L 7000.5300, L501.3620, L100.0100, L505.7010, L4600.0100, L500.4050 #### [facility] [address] [place], [address] EST GFR - AA 112 mL/min Normal >60 [facility] Comment on above: Result Comment: Afri can [place] GFR Calc Performed By: #### L 7000.5300, L501.3620, L100.0100, L505.7010, L4600.0100, L500.4050 #### [facility] [address] [place], [address] GAP 8 Normal 5-15 [facility] Comment on above: Performed By: #### L 7000.5300, L501.3620, L100.0100, L505.7010, L4600.0100, L500.4050 #### [facility] [address] [place], [address] GFR/1.73 sq M.predicted among non-blacks MDRD (S/P/Bld) [Vol rate/Area] 93 mL/min/{1.73_m2} Normal >60 [facility] Comment on above: Result Comment: Non- GFR Calc Performed By: #### L 7000.5300, L501.3620, L100.0100, L505.7010, L4600.0100, L500.4050 #### [facility] [address] [place], [address] Globulin (S) [Mass/Vol] 3.8 g/dL Normal 2.2-4.2 [facility] Comment on above: Performed By: #### L 7000.5300, L501.3620, L100.0100, L505.7010, L4600.0100, L500.4050 #### [facility] [address] [place], [address] Glucose [Mass/Vol] 76 mg/dL Normal 74-106 [facility] Comment on above: Performed By: #### L 7000.5300, L501.3620, L100.0100, L505.7010, L4600.0100, L500.4050 #### [facility] [address] [place], [address] Potassium [Moles/Vol] 4.5 mmol/L Normal 3.5-5.1 [facility] Comment on above: Performed By: #### L 7000.5300, L501.3620, L100.0100, L505.7010, L4600.0100, L500.4050 #### [facility] [address] [place], [address] Sodium [Moles/Vol] 137 mmol/L Normal 136-145 [facility] Comment on above: Performed By: #### L 7000.5300, L501.3620, L100.0100, L505.7010, L4600.0100, L500.4050 #### [facility] [address] [place], [address] T PROT 7.3 g/dL Normal 6.4-8.2 [facility] Comment on above: Performed By: #### L 7000.5300, L501.3620, L100.0100, L505.7010, L4600.0100, L500.4050 #### [facility] [address] [place], [address] Urea nitrogen [Mass/Vol] 10 mg/dL Normal 7-18 [facility] Comment on above: Performed By: #### L 7000.5300, L501.3620, L100.0100, L505.7010, L4600.0100, L500.4050 #### [facility] [address] [place], [address] Rheumatoid Factoron 02-20-20 RHEUMATOID FAC < 10.0 Normal <15 [facility] Comment on above: Performed By: #### L 7000.5300, L501.3620, L100.0100, L505.7010, L4600.0100, L500.4050 #### [facility] [address] [place], [address] Vitamin D,25 Hydroxyon 02-19 Vitamin D 25-OH 31.8 ng/mL Normal [facility] Comment on above: Result Comment: Shauna min D 25(OH) Status Range Deficiency <20 ng/mL (50nmol/L) Insufficiency 20 - 30 ng/mL (50 - 75 nmol/L) Sufficiency 30 - 100 ng/mL (75 - 250 nmol/L) Toxicity >100 ng/mL (>250 nmol/L) Performed By: #### L 506.1000 #### [facility] [address] [place], [place], [address] Internal Medicine Office Vis itotoribio 02-19-2024 Internal Medicine Office Visit [facility] [place], [place] [address] OFFICE VISIT Date of Service: 02/20/24 MR#: [id number] Acct: [id number] Name: NAVEED DAUGHERTY AJAY Rep #: [id number] : 1995 Provider: Dr. Karen florence MD Age/Sex: 28/F Location: [facility] [place], [place] Status: Signed Intake Vital Signs 08/24/23 08:29 02/20/24 09:04 Height 5 ft 4 in 5 ft 4 in Weight: 148 lb BMI 25.4 BP 120/80 Blood Pressure Location Rt brachial Position Sitting Respiration 16 Pulse 72 Pulse Source Monitor Temp 98.3 F Temp Source Temporal Pulse Oximetry (%) 99 Oxygen Delivery Method room air Intake Visit Reasons: YEARLY FOLLOW UP Chief Complaint: FOLLOW UP Is patient in pain?: No Allergies No Known Allergies Allergy (Unverified 02/20/24 09:01) Medications ???Medication ???Instructions ???Recorded ???Confirmed ???Type norgestimate-ethinyl estradiol 1 tab PO DAILY #84 tabs 06/27/23 02/20/24 Rx 0.18 mg/0.215mg/0.25mg-35 mcg(28)tablet (Tri-Estarylla) escitalopram oxalate 5 mg tablet 5 mg PO DAILY #90 tabs 08/24/23 02/20/24 Rx (Lexapro) PFSH Medical History History of migraine headaches Hx: UTI (urinary tract infection) Surgical History No pertinent past surgical history Family History (Updated 02/20/24 @ 09:[address] Karen Wall MD) Mother Breast cancer 45 Depression Seizures Father Depression Grandfather CVA (cerebral vascular accident) Social History (Updated 02/20/24 @ 09:[address] 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 She is due for some routine blood work. She is up to date on her screening. She isn't due for any immunizations. She doesn't smoke and does not need refills today. She reports she is eating healthy and is trying to stay active. The patient reports that she has been doing well with her depression and anxiety. She reports she felt that she was doing well, so she started taking her lexapro every other day last month. She reports she hasn't noticed a big difference with doing so. She continues to follow with a counselor and finds that has been beneficial. She denies any current concerns of her mental health nor any thoughts of suicide. She reports she is still having some pain and tightness in her neck. She states her symptoms remain intermittent. She did see the chiropractor, which alleviated some of her pain. She reports, however, her pain started coming back about a month later with the tightness. She states it wasn't as bad as it was previous to seeing them, however. She reports on Tuesday, she had an upper body massage which seemed to help quite a bit. She states it doesn't feel as tight as it did. She denies any significant pain today. She continues to deny any numbness/tingling in her arms/legs or any arm/leg weakness. She never did the XR as previously ordered. She is still taking her vitamin D supplement regularly. She takes 1000 units daily, although notes she will occasionally forget. She continues to do well with her OCP without problems. She reports she still has some knee discomfort with certain activities. She reports she isn't as concerned about it as previously. She reports it hasn't changed or worsened at all. She states, however, now she is having pain in her right shoulder. It has been going on for a couple of weeks. She denies any falls or injuries. She has been playing pickleball a few times and isn't sure if that is related. She reports it is intermittent where she will have episodes where she doesn't have good ROM ans has pain in the anterior shoulder. She reports it doesn't last more than 12-24 hours at a time, however. It has happened 2-3 times since it started. She has tried icing it and has taken ibuprofen which she thinks does help. She reports on , her pain was severe, rating it 8/10 currently. She will describe the pain like a burning/sharp pain. She denies any pain today, however. As above, she denies any arm numbness/tingling or arm weakness. ROS Const Constitutional: No body ache, chills, excessive sweating, fatigue, fever(s), frequent falls, headache(s), snoring, weakness, weight change, sleep problems or change in appetite Eyes Eyes: No blurry vision, change in vision or Light (more content not included)... Normal [facility] Basophil percentageOrdered B y: Karen Wall on 08-24-2023 Chloride [Moles/Vol] 107 mmol/L 98-107 [facility] Glucose [Mass/Vol] 66 mg/dL 74-106 [facility] Potassium [Moles/Vol] 3.8 mmol/L 3.5-5.1 [facility] Sodium [Moles/Vol] 138 mmol/L 136-145 [facility] Erythrocyte sedimentation ra teOrdered By: Karen Wall on 08-24-2023 ESR (Bld) [Velocity] 4 mm/h 0-30 [facility] - Chemistry and C hemistry - challengeOrdered By: Karen Wall on 08-24-2023 CO2 [Moles/Vol] 26.0 mmol/L 21.0-32.0 [facility] Magnesium [Mass/Vol] 2.3 mg/dL 1.6-2.6 [facility] Urea nitrogen/Creatinine [Mass ratio] 10.1 mg/mg 10-20 [facility] No Panel InformationOrdered By: Karen Wall on 08-24-2023 Anti-Nuclear Antibody Screen Negative Negative [facility] Comment on above: Performed at: [address] [id number] Director: Anthony Sanchez PhD, Phone: [phone] C-Reactive Protein Extended Range < 2.90 mg/L 0.0-3.0 [facility] Comment on above: C-Reactive Protein ( CRP) provides useful information for thediagnosis, therapy and monitoring of inflammatory processesand associated diseases. For the evaluation of Relative Riskfor Cardiovascular Disease, a High Sensitivity CRP (HSCRP)should be ordered. Centromere B Antibody Not Reportable [facility] Estimated GFR (MDRD) Amer 109 mL/min >60 [facility] Comment on above: GFR Calc Estimated GFR (MDRD) Non-Af Amer 90 mL/min >60 [facility] Comment on above: Non- GFR Calc RUTH-1 Antibody Not Reportable [facility] RETIREMENT OFFICER Antibody Not Reportable [facility] No Panel InformationOrdered By: Parisa Babin on 08-24-2023 Vitamin D 25-Hydroxy 23.4 ng/mL [facility] Comment on above: Vitamin D 25(OH) Sta tus Range Deficiency <20 ng/mL (50nmol/L) Insufficiency 20 - 30 ng/mL (50 - 75 nmol/L) Sufficiency 30 - 100 ng/mL (75 - 250 nmol/L) Toxicity >100 ng/mL (>250 nmol/L) SS-B IgG antibody assayOrder ed By: Karen Wall on 08-24-2023 Sjogrens syndrome-B extractable nuclear IgG Qn (S) Not Reportable [facility] Serum DNA double strand anti body assay (units/volume)Ordered By: Karen Wall on 08-24-2023 DNA double strand Ab Qn (S) Not Reportable [facility] Serum Scl-70 antibody assay (units/volume)Ordered By: Karen Wall on 08-24-2023 SCL-70 extractable nuclear Ab Qn (S) Not Reportable [facility] Serum or plasma calcium noel urement (mass/volume)Ordered By: Karen Wall on 08-24-2023 Calcium [Mass/Vol] 9.0 mg/dL 8.5-10.1 [facility] Serum or plasma creatinine m easurement (mass/volume)Ordered By: Karen Wall on 08-24-2023 Creatinine [Mass/Vol] 0.80 mg/dL 0.55-1.02 [facility] Comment on above: The validity of the calculated GFR & GFRAA in patients over 70 years has not been determined. Clinical correlation is essential. Serum or plasma urea nitroge n measurement (mass/volume)Ordered By: Karen Wall on 08-24-2023 Urea nitrogen [Mass/Vol] 8 mg/dL 7-18 [facility] Wagner antibody assayOrdered By: Karen Wall on 08-24-2023 Wagner extractable nuclear Ab (S) [Titer] Not Reportable [facility] Thin prep Papanicolaou smear with manual screeningOrdered By: Karen Wall on 08-24-2023 Thin prep Papanicolaou smear with manual screening 5 5-15 [facility] Internal Medicine Office Vis itotoribio 08-23-2023 Internal Medicine Office Visit [facility] [address] [place] [address] [place] [address] OFFICE VISIT Date of Service: 08/24/23 MR#: [id number] Acct: [id number] Name: NAVEED DAUGHERTY Rep #: [id number] : 1995 Provider: Dr. Karen florence MD Age/Sex: 28/F Location: [facility] [place] [place] Status: Signed Intake Vital Signs 02/21/23 08:30 06/27/23 10:02 08/24/23 08:29 Height 5 ft 4 in 5 ft 4 in 5 ft 4 in Weight: 145 lb BMI 24.9 BP 108/76 Blood Pressure Location Lt brachial Respiration 14 Pulse 70 Pulse Source Monitor Temp 98.2 F Temp Source Temporal Pulse Oximetry (%) 98 Oxygen Delivery Method room air Intake Visit Reasons: 6 M FU Chief Complaint: 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: No Is patient in pain?: No Allergies No Known Allergies Allergy (Unverified 08/24/23 08:24) Medications norgestimate-ethinyl estradiol 0.18 mg/0.215mg/0.25mg-35 mcg(28)tablet (Tri-Estarylla) 1 tab PO DAILY #84 tabs 06/27/23 [Rx Confirmed 08/24/23] escitalopram oxalate 5 mg tablet (Lexapro) 5 mg PO DAILY #90 tabs 08/24/23 [Rx Confirmed 08/24/23] Nurse's Note: Needs refill on lexapro. 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 She is not due for any routine blood work. She is up to date on her screening. She doesn't want her flu shot today. She doesn't smoke and does need refills today. She reports she is eating healthy and is trying to stay active. The patient reports that she has been doing well with the lexapro. She is currently happy with her dosing and doesn't feel that it needs to be adjusted. She feels that it has worked well for her. She does still have some diarrhea, but reports it is manageable. She did start seeing the counselor and has been going for the last 3 months. She sees them once a month. She reports she is still having some pain and tightness in her neck. She states it will occasionally radiate down her right arm. She has been doing the home exercises. She states it has helped a little, but not much. She states it feels deep. She will occasionally take an ibuprofen which does help, but tries to limit that use. She continues to deny any numbness/tingling in her arms/legs or any arm/leg weakness. She is still taking her vitamin D supplement regularly. She continues to do well with her OCP without problems. She does have a little joint achiness. She states she first noticed it about a month ago. She states she has noticed it in both knees, right more than left, and her bilateral elbows. It is not interfering with her ADLs. She hasn't really noticed any swelling, bruising or redness. She hasn't had any falls or injuries. She hasn't had any changes to her activity level. She has no questions or concerns at this time. ROS Const Constitutional: No body ache, chills, excessive sweating, fatigue, fever(s), frequent falls, headache(s), snoring, weakness, weight change, sleep problems or change in appetite Eyes Eyes: No blurry vision, change in vision, eye pain or Light sensitivity ENT ENT: Positive for neck pain; No abnormal hearing, ear or mastoid pain, tinnitus, nasal congestion, headache(s) or sore throat Resp Respiratory: Positive for shortness of breath sob: SOB with activity (mild); No cough, snoring or wheezing Cardio Cardiology: Positive for lightheadedness; No chest pain at rest, chest pain with exertion, excessive sweating, shortness of breath, dyspnea on exertion, orthopnea, palpitations or other (no leg swelling) Gastro GI: No abdominal pain, change in bowel habits, constipation, cramping, diarrhea, nausea/dyspepsia or vomiting Genitourinary-Female : No difficulty urinating, burning urination, painful urination, urinary incontinence, urinary frequency, abnormal vaginal bleeding or pelvic pain Musc Musculoskeletal: Positive for joint pain and neck pain; No abnormal gait, back pain, (more content not included)... Normal [facility] Absolute lymphocyte countOrd ered By: Dr. Wall on 01-10-2023 Lymphocytes Auto (Unsp spec) [#/Vol] 2.09 10*3/uL 0.83-4.51 [facility] Basophil percentageOrdered B y: Dr. Wall on 01-10-2023 Basophils/100 WBC (Bld) 1.2 % 0-1 [facility] Bilirubin [Mass/Vol] 0.20 mg/dL 0.20-1.00 [facility] Comment on above: For patients on eltr ombopag therapy, use of Dimension [place] TBIL is not recommended. Chloride [Moles/Vol] 109 mmol/L 98-107 [facility] Eosinophils/100 WBC (Bld) 6.2 % 0-5 [facility] Glucose [Mass/Vol] 86 mg/dL 74-106 [facility] Neutrophils (Bld) [#/Vol] 2.4 10*3/uL 2.0-7.7 [facility] Neutrophils/100 WBC (Bld) 45.7 % 47-70 [facility] Potassium [Moles/Vol] 4.0 mmol/L 3.5-5.1 [facility] Protein [Mass/Vol] 7.7 g/dL 6.4-8.2 [facility] Sodium [Moles/Vol] 138 mmol/L 136-145 [facility] WBC (Bld) [#/Vol] 5.2 10*3/uL 4.4-11.0 [facility] Blood erythrocytes count (nu mber/volume)Ordered By: Dr. Wall on 01-10-2023 RBC (Bld) [#/Vol] 3.92 10*6/uL 4.2-5.4 [facility] Blood hemoglobin measurement (mass/volume)Ordered By: Dr. Wall on 01-10-2023 Hemoglobin (Bld) [Mass/Vol] 12.4 g/dL 12.0-15.0 [facility] Blood lymphocytes/100 leukoc ytesOrdered By: Dr. Wall on 01-10-2023 Lymphocytes/100 WBC (Bld) 40.2 % 19-41 [facility] Blood monocytes/100 leukocyt esOrdered By: Dr. Wall on 01-10-2023 Monocytes/100 WBC (Bld) 6.5 % 0-10 [facility] Blood platelet mean volumeOr dered By: Dr. Wall on 01-10-2023 Platelet mean volume (Bld) [Entitic vol] 9.8 fL 6.2-12.0 [facility] Determination of erythrocyte mean corpuscular volume (MCV)Ordered By: Dr. Wall on 01-10-2023 MCV (RBC) [Entitic vol] 95.4 fL 81-99 [facility] Hematocrit Auto (Bld) [Volum e fraction]Ordered By: Dr. Wall on 01-10-2023 Hematocrit (Bld) [Volume fraction] 37.4 % 37-47 [facility] - Chemistry and C hemistry - challengeOrdered By: Dr. Wall on 01-10-2023 ALP [Catalytic activity/Vol] 66 U/L 45-117 [facility] ALT [Catalytic activity/Vol] 18 U/L 13-56 [facility] CO2 [Moles/Vol] 25.0 mmol/L 21.0-32.0 [facility] Globulin (S) [Mass/Vol] 3.9 g/dL 2.2-4.2 [facility] Urea nitrogen/Creatinine [Mass ratio] 13.4 mg/mg 10-20 [facility] - Hematology and Cell countsOrdered By: Dr. Wall on 01-10-2023 Erythrocyte distribution width (RBC) [Entitic vol] 44.3 fL 35.1-43.9 [facility] Erythrocyte distribution width (RBC) [Ratio] 12.7 % 11.6-14.6 [facility] Immature granulocytes/100 WBC (Bld) 0.200 % 0.0-0.9 [facility] Comment on above: IG% - Immature Granu locytes (promyelocytes, myelocytes and metamyelocytes) > 1% indicates that a LEFT SHIFT is Present. MCH (RBC) [Entitic mass] 31.6 pg 27.0-32.0 [facility] Nucleated RBC/100 WBC (Bld) [Ratio] 0 % 0-5 [facility] MCHC Auto (RBC) [Mass/Vol]Or dered By: Dr. Wall on 01-10-2023 MCHC (RBC) [Mass/Vol] 33.2 g/dL 32-36 [facility] No Panel InformationOrdered By: Dr. Wall on 01-10-2023 Estimated GFR (MDRD) Amer 132 mL/min >60 [facility] Comment on above: GFR Calc Estimated GFR (MDRD) Non-Af Amer 109 mL/min >60 [facility] Comment on above: Non- GFR Calc Thyroid Stimulating Hormone (TSH) 1.53 uIU/mL 0.358-3.74 [facility] Vitamin D 25-Hydroxy 23.2 ng/mL [facility] Comment on above: Vitamin D 25(OH) Sta tus Range Deficiency <20 ng/mL (50nmol/L) Insufficiency 20 - 30 ng/mL (50 - 75 nmol/L) Sufficiency 30 - 100 ng/mL (75 - 250 nmol/L) Toxicity >100 ng/mL (>250 nmol/L) Platelets bldOrdered By: Dr. Wall on 01-10-2023 Platelets (Bld) [#/Vol] 301 10*3/uL 150-450 [facility] Serum or plasma albumin noel urement (mass/volume)Ordered By: Dr. Wall on 01-10-2023 Albumin [Mass/Vol] 3.8 g/dL 3.2-5.0 [facility] Serum or plasma albumin/glob ulin mass ratioOrdered By: Dr. Wall on 01-10-2023 Albumin/Globulin [Mass ratio] 1.0 {ratio} 0.9-2.4 [facility] Serum or plasma calcium noel urement (mass/volume)Ordered By: Dr. Wall on 01-10-2023 Calcium [Mass/Vol] 9.1 mg/dL 8.5-10.1 [facility] Serum or plasma creatinine m easurement (mass/volume)Ordered By: Dr. Wall on 01-10-2023 Creatinine [Mass/Vol] 0.67 mg/dL 0.55-1.02 [facility] Comment on above: The validity of the calculated GFR & GFRAA in patients over 70 years has not been determined. Clinical correlation is essential. Serum or plasma urea nitroge n measurement (mass/volume)Ordered By: Dr. Wall on 01-10-2023 Urea nitrogen [Mass/Vol] 9 mg/dL 7-18 [facility] Thin prep Papanicolaou smear with manual screeningOrdered By: Dr. Wall on 01-10-2023 Thin prep Papanicolaou smear with manual screening 11 U/L 15-37 [facility] Thin prep Papanicolaou smear with manual screening 4 5-15 [facility] CNCOon 01-22-2022 CNCO Letter Text Normal [facility] C. trachomatis+N. gonorrhoea e DNA ETSEBAN+probe Ql (Unsp spec)on 01-14-2022 C. trachomatis DNA ESTEBAN+probe Ql (Unsp spec) Negative Normal Negative for Chlamydia trachomatis by amplificaton [facility] Comment on above: Order Comment: Speci men Type: SWAB Ordering Facility: [facility] Address: [address] [place] [address] Performed By: #### 3 [id number] #### [facility] CLIA [id number] [address] [place] [address] [place] N. gonorrhoeae DNA ESTEBAN+probe Ql (Unsp spec) Negative Normal Negative for Neisseria gonorrhoeae by amplification [facility] Comment on above: Order Comment: Speci men Type: SWAB Ordering Facility: [facility] Address: [address] [place] [id number] Performed By: #### 3 [id number] #### [facility] TAWNYAIA [id number] [address] [place] [address] [place] [address] [place] CNOVon 01-14-2022 CNOV Office Visit (OBGYWM) ARABELLABRITTNINAVEED GOMEZ ([id number]) 1995 F Date Time Provider Department 01/14/22 8:30 AM JOY MUNOZ OBGYWMarco During your visit today, we recorded the following information about you: Blood pressure Weight Height Last Period 102/64 59.1 kg 1.638 m 01/06/22 Joy Munoz APRN.ANIMAL HUSBANDRY PROFESSOR 01/14/2022 9:44 AM Signed Naveed is a 26 year old who presents for an annual gynecologic exam without complaints. -Last RENEWABLE ENERGY DIVISION MANAGER [facility] [...] No History of PCOS: No History of minister assistant malignancy: none Pain with intercourse: No Postcoital bleeding: No OB History T0 L0 SAB0 IAB0 Ectopic0 Multiple0 Live Births0 International Relations Professor History LMP: 01/06/2022, Having periods Age at Menarche: Age at First : Age at Menopause: International Relations Professor History Comments: Sexual Activity: Yes; Male Contraception: [...] external genitalia normal, normal Bartholin's glands, urethra, [place]'s glands, no vulvar lesions, no cervical lesions, [...] cancer. -Genetic counseling ordered today. Pat Hyman. SENIOR PROJECT CONTROLS SPECIALIST student TEACHING PROVIDER (Physician/PA/DRY LUMBER GRADER) NOTE OF PERSONAL INVOLVEMENT IN CARE: I have personally seen and examined the patient and performed the medical decision-making components. I have reviewed the Advanced Practice Registered Nurse (DRY LUMBER GRADER) Student's documentation and verified the findings in the note as written. Any additions or changes are noted in bold/italics. Signature: Joy Munoz Date: 01/14/2022 Time: 9:43 AM Referring Provider: BRENNA GALLO [[id number]] Allergies As of Date: 01/14/2022 (No Known Allergies) Date Reviewed: 01/14/2022 Reviewed by: Joy Munoz APRN.ANIMAL HUSBANDRY PROFESSOR - Fully Assessed Reason for Visit: Yearly Exam [187] Primary Visit Diagnosis:Encounter for gynecological examination (general) (routine) without abnormal findings [Z01.419] Other Visit Diagnoses:Well woman exam with routine gynecological exam [Z01.419] Screening for cervical cancer [Z12.4] Encounter for screening for human papillomavirus (HPV) [Z11. (more content not included)... Normal [facility] HPV W/GENOTYPE THIN PREPon 0 01-14-2022 HPV 16 Ag Ql (Unsp spec) Negative Normal Negative for HPV DNA high risk type 16 by PCR [facility] Comment on above: Order Comment: Speci men Type: FLUID SAMPLE Ordering Facility: [facility] Address: [address] [place] [address] Performed By: #### H PVHRT #### [facility] CLIA [id number] [address] [place] [address] [place] HPV 18 Ag Ql (Unsp spec) Negative Normal Negative for HPV DNA high risk type 18 by PCR [facility] Comment on above: Order Comment: Speci men Type: FLUID SAMPLE Ordering Facility: [facility] Address: [address] [place] [address] Performed By: #### H PVHRT #### [facility] CLIA [id number] [address] [place] [address] [place] HPV 31+33+35+39+45+51+52+5 6+58+59+66+68 DNA ESTEBAN+probe Ql (Cvx) Negative for HPV DNA high risk types: 31,33,35,39,45,51,52 ,56,58,59,66,68 by PCR. Normal Negative for HPV DNA high risk types: 31,33,35,39,45,5 1,52,56,58,59,66 ,68 by PCR. [facility] Comment on above: Order Comment: Speci men Type: FLUID SAMPLE Ordering Facility: [facility] Address: [address] [place] [address] Performed By: #### H PVHRT #### [facility] CLIA [id number] [address] [place] [address] [place] PAP FLUID CERVICAL SCREENING on 01-14-2022 CASE REPORT Normal [facility] Comment on above: Order Comment: Speci men Type: FLUID SAMPLE Ordering Facility: [facility] Address: [address] [place] [address] Result Comment: Gyne cologic Cytology Report Case: [id number] Authorizing Provider: Joy Munoz APRN.ANIMAL HUSBANDRY PROFESSOR Collected: 01/14/2022 09:15 AM Ordering Location: OB/Gynecology Received: 01/14/2022 01:12 PM First Screen: WERNER Alvares, ASCP Pathologist: Jacquie Fan MD Specimen: PAP ACCOUNTS RECEIVABLE SPECIALIST SCREENING, CERVICAL SCREENING FLUID Performed By: #### L [id number] #### [facility] CLIA [id number] [address] [place] [address] [place] [facility] CLIA [id number] [address] [place] [address] [place] CLINICAL HISTORY ROUTINE EXAM Normal [facility] Comment on above: Order Comment: Speci men Type: FLUID SAMPLE Ordering Facility: [facility] Address: [address] [place] [address] Performed By: #### L [id number] #### [facility] CLIA [id number] [address] [place] [address] LAB CLIA [id number] [address] [place] [address] OF ANGEL CYTOLOGY INTERPRETATION PAP Abnormal [facility] Comment on above: Order Comment: Speci men Type: FLUID SAMPLE Ordering Facility: [facility] Address: [address] [place] [address] Result Comment: Epit helial cell abnormality. Atypical squamous cells of undetermined significance (ASC-US) Performed By: #### L [id number] #### [facility] CLIA [id number] [address] [place] [address] [place] [facility] CLIA [id number] [address] [place] [address] [place] OF [place] CYTOLOGY PAP OTHER INT Predominance of coccobacilli consistent with shift in vaginal chelsey Normal [facility] Comment on above: Order Comment: Speci men Type: FLUID SAMPLE Ordering Facility: [facility] Address: [address] [place] [address] Performed By: #### L [id number] #### [facility] CLIA [id number] [address] [place] [address] [facility] CLIA [id number] [address] [place] [address] [place] OF [place] FINAL DIAGNOSIS Normal [facility] Comment on above: Order Comment: Speci men Type: FLUID SAMPLE Ordering Facility: [facility] Address: [address] [place] [address] Result Comment: A - CERVICAL SCREENING FLUID Satisfactory for interpretation, No endocervical component Epithelial cell abnormality. Atypical squamous cells of undetermined significance (ASC-US) Predominance of coccobacilli consistent with shift in vaginal chelsey Performed By: #### L [id number] #### [facility] CLIA [id number] [address] [place], [place] [id number] [place] [facility] CLIA [id number] [address] [place] [address] [place] FINAL PERFORMING LAB Normal [facility] Comment on above: Order Comment: Speci men Type: FLUID SAMPLE Ordering Facility: [facility] Address: [address] [place] [address] Result Comment: Tech nical component, trailer park manager screening performed at [facility], [address], [place] [address] CLIA# [id number] Diagnostic interpretation performed at [facility], [address] [place] [address] CLIA# [id number] [employer]: Jacquie Fan M.D. Performed By: #### L [id number] #### [facility] CLIA [id number] [address] [place] [address] [place] [facility] CLIA [id number] [address] [place] [address] [place] HPV REQUESTED? Yes, Reflex HPV for ASCUS Normal [facility] Comment on above: Order Comment: Speci men Type: FLUID SAMPLE Ordering Facility: [facility] Address: [address] [place] [address] Performed By: #### L [id number] #### [facility] CLIA [id number] [address] [place] [address] [place] [facility] CLIA [id number] [address] [place] [address] [place] LMP 01/06/2022 Normal [facility] Comment on above: Order Comment: Speci men Type: FLUID SAMPLE Ordering Facility: [facility] Address: [address] [place], [place] [address] Performed By: #### L [id number] #### [facility] CLIA [id number] [address] [place] [address] [place] [facility] CLIA [id number] [address] [place] [address] [place] PAP DISCLAIMER COMMENT The Pap Smear is a screening test for cervical cancer. False negative results occur with all screening tests, emphasizing the need for rescreening at recommended intervals, and clinical correlation. Normal [facility] Comment on above: Order Comment: Speci men Type: FLUID SAMPLE Ordering Facility: [facility] Address: [address] [place] [address] Performed By: #### L [id number] #### [facility] CLIA [id number] [address] [place] [address] [place] [facility] CLIA [id number] [address] [place] [address] [place] PAP ACCOUNTS RECEIVABLE SPECIALIST COMMENT This specimen has been analyzed by the ThinPrep Imaging System, an automated imaging and review system, which assists the laboratory in evaluating cells on ThinPrep Pap tests. Following automated imaging, selected manrique from every slide are reviewed by a trailer park manager. Normal [facility] Comment on above: Order Comment: Speci men Type: FLUID SAMPLE Ordering Facility: [facility] Address: [address] [place] [address] Performed By: #### L [id number] #### [facility] CLIA [id number] [address] [place] [address] [place] [facility] CLIA [id number] [address] [place] [address] [place] Basic metabolic 2000 panelon 12-31-2021 Anion gap [Moles/Vol] 10 mmol/L Normal 9-18 [facility] Comment on above: Order Comment: Speci men Type: BLOOD SPECIMEN Ordering Facility: [facility] Address: [address] [place], [place] [address] Performed By: #### L IPNF, 66858-5 #### [facility] CLIA [id number] [address] [place] [address] [place] Calcium [Mass/Vol] 9.4 mg/dL Normal 8.5-10.2 [facility] Comment on above: Order Comment: Speci men Type: BLOOD SPECIMEN Ordering Facility: [facility] Address: [address] [place] [address] Performed By: #### L IPJAGJIT, 59843-4 #### [facility] CLIA [id number] [address] [place] [address] [place] Chloride [Moles/Vol] 103 mmol/L Normal 97-105 [facility] Comment on above: Order Comment: Speci men Type: BLOOD SPECIMEN Ordering Facility: [facility] Address: [address] [place], [place] [address] Performed By: #### L IPJAGJIT, 45156-2 #### [facility] CLIA [id number] [address] [place] [address] [place] CO2 [Moles/Vol] 24 mmol/L Normal 22-30 [facility] Comment on above: Order Comment: Speci men Type: BLOOD SPECIMEN Ordering Facility: [facility] Address: [address] [place], [place] [address] Performed By: #### L IPNF, 02771-3 #### [facility] CLIA [id number] [address] [place] [address] [place] Creatinine [Mass/Vol] 0.66 mg/dL Normal 0.58-0.96 [facility] Comment on above: Order Comment: Speci men Type: BLOOD SPECIMEN Ordering Facility: [facility] Address: [address] [place] [address] Performed By: #### L IPNF, 34010-4 #### [facility] CLIA [id number] [address] [place] [address] [place] ESTIMATED GLOMERULAR FILTRATION RATE 123 mL/min/1.73m??? Normal >=60 [facility] Comment on above: Order Comment: Speci men Type: BLOOD SPECIMEN Ordering Facility: [facility] Address: [address] [place] [address] Result Comment: Mariah mated Glomerular Filtration Rate (eGFR) is calculated using the 2020 CKD-EPI creatinine equation. This equation utilizes serum creatinine, sex, and age as parameters. The creatinine assay has traceable calibration to isotope dilution-mass spectrometry. Refer to KDIGO guidelines for clinical interpretation. In patients with unstable renal function, e.g. those with acute kidney injury, the eGFR may not accurately reflect actual GFR. Performed By: #### L MONTANA, 53520-7 #### [facility] CLIA [id number] [address] [place] [address] [place] Glucose [Mass/Vol] 75 mg/dL Normal 74-99 [facility] Comment on above: Order Comment: Viri ash Type: BLOOD SPECIMEN Ordering Facility: [facility] Address: [address] [place] [address] Result Comment: The [place] Diabetes Association (ADA) provides guidance for cutoff values for fasting glucose and random glucose. The ADA defines fasting as no caloric intake for at least 8 hours. Fasting plasma glucose results between 100 to 125 mg/dL indicate increased risk for diabetes (prediabetes). Fasting plasma glucose results greater than or equal to 126 mg/dL meet the criteria for diagnosis of diabetes. In the absence of unequivocal hyperglycemia, results should be confirmed by repeat testing. In a patient with classic symptoms of hyperglycemia or hyperglycemic crisis, random plasma glucose results greater than or equal to 200 mg/dL meet the criteria for diagnosis of diabetes. Reference: Standards of Medical Care in Diabetes 2016, [place] Diabetes Association. Diabetes Care. 2016.39(Suppl 1). Performed By: #### L MONTANA, 42328-4 #### [facility] CLIA [id number] [address] [place] [address] [place] Potassium [Moles/Vol] 4.5 mmol/L Normal 3.7-5.1 [facility] Comment on above: Order Comment: Viri ash Type: BLOOD SPECIMEN Ordering Facility: [facility] Address: [address] [place] [address] Performed By: #### L MONTANA, 02211-2 #### [facility] CLIA [id number] [address] [place] [address] [place] Sodium [Moles/Vol] 137 mmol/L Normal 136-144 [facility] Comment on above: Order Comment: Speci men Type: BLOOD SPECIMEN Ordering Facility: [facility] Address: [address] [place] [address] Performed By: #### L MONTANA, 26282-9 #### [facility] CLIA [id number] [address] [place] [address] [place] Urea nitrogen [Mass/Vol] 9 mg/dL Normal 7-21 [facility] Comment on above: Order Comment: Speci men Type: BLOOD SPECIMEN Ordering Facility: [facility] Address: [address] [place] [address] Performed By: #### L IPJAGJIT, 61264-8 #### [facility] CLIA [id number] [address] [place] [address] [place] CNOVon 12-31-2021 CNOV Office Visit (INTMWS) NAVEED DAUGHERTY ([id number]) 1995 F Date Time Provider Department 12/31/21 8:00 AM BRENNA GALLO INTMWS During your visit today, we recorded the following information about you: Pulse Respiration Blood pressure Weight 68/minute 16/minute 120/82 57.2 kg Height 1.651 m Brenna Gallo APRN.CLIENT SERVICE SUPERVISOR 12/31/2021 9:03 AM Signed SUBJECTIVE: COVID-19 VACCINE(1) Never done HEPATITIS C SCREENING Never done HIV SCREENING Never done DTAP,TDAP,TD(1 - Tdap) Never done PAP TESTING Never done [facility] Naveed Daugherty is a 26 year old female. Has been seen at [facility] only, no other visits. Presents today to establish care at [facility]. 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 Going to [place] grief counselor. Mom passed in June. She notes this is helping, not interested in medication at this time. She notes she is been generally in good health. Notes a small mole on the back of her neck present for a few months no changes not painful She notes completing all routine immunizations. Review of Systems Constitutional: Negative. Psychiatric/Behavior al: Positive for dysphoric mood. Objective BP 120/82 Pulse 68 Resp 16 Ht 165.1 cm (5' 5) Wt 57.2 kg (126 lb) LMP 10/02/2017 [...] ICD9: V72.31, ICD10: Z01.419 - CONSULT TO RENEWABLE ENERGY DIVISION MANAGER 6. Encounter for screening for diabetes mellitus - ICD9: V77.1, ICD10: Z13.1 - BASIC METABOLIC PNL 7. Screening for lipid disorders - ICD9: V77.91, ICD10: Z13.220 - LIPID PANEL, NONFASTING 8. Skin lesion - ICD9: 709.9, ICD10: L98.9 - CONSULT TO DERMATOLOGY Labs today. 1 year follow-up with PCP. Brenna Gallo APRN.CLIENT SERVICE SUPERVISOR Referring Provider: SELF [200] Allergies As of Date: 12/31/2021 (No Known Allergies) Date Reviewed: 12/31/2021 Reviewed by: Madeline Goodrich LPN - Fully Assessed Reason for Visit: Establish Care [42] Primary Visit Diagnosis:Routine medical exam [Z00.00] Other Visit Diagnoses:Encounter for immunization [Z23] Special screening examination for viral disease [Z11.59] Screening for HIV (human immunodeficiency virus) [Z11.4] Well woman exam with routine gynecological exam [Z01.419] Encounter for screening for diabetes mellitus [Z13.1] Screening for lipid disorders [Z13.220] Skin lesion [L98.9] Order(s):HEP C AB IA W/CONF SCRN [IZXZBA9A] Order #: [id number] FUTURE HIV 1 2 COMBO(AG/AB),WITH REFLEX TO DIFFERENTIATION [SQHIV12] Order #: [id number] FUTURE CONSULT TO RENEWABLE ENERGY DIVISION MANAGER [9021] Order #: [id number]: 1 FUTURE BASIC METABOLIC PNL [SQBMP] Order #: [id number] FUTURE LIPID PANEL, NONFASTING [SQLIPNF] Order #: [id number] FUTURE CONSULT TO DERMATOLOGY [9005] Order #: [id number]: 1 FUTURE Prescriptions as of 12/31/2021 - Norgestimate-Ethinyl Estradiol (TRI-ESTARYLLA) 0.18/0.215/ (more content not included)... Normal [facility] HCV Ab Ser Qlon 12-31-2021 HCV Ab Ql (S) Negative Normal Negative [facility] Comment on above: Order Comment: Speci men Type: BLOOD SPECIMEN Ordering Facility: [facility] Address: [address] [place] [address] Result Comment: The result suggests no evidence of active infection with Hepatitis C virus. Should recent infection be suspected, repeat testing may be considered 4-6 weeks after this draw. Performed By: #### 1 6128-1 #### [facility] CLIA [id number] [address] [place] [address] [place] HIV 1+2 Ab IA Qlon 2 HIV 1 and 2 Ab IA.rapid Nom Normal [facility] Comment on above: Order Comment: Viri ash Type: BLOOD SPECIMEN Ordering Facility: [facility] Address: [address] [place] [address] Result Comment: Test not indicated. Performed By: #### 3 1201-7 #### [facility] CLIA [id number] [address] [place] [address] [place] HIV 1+2 Ab+HIV1 p24 Ag IA Ql Non-Reactive Normal Nonreactive [facility] Comment on above: Order Comment: Arcenioi men Type: BLOOD SPECIMEN Ordering Facility: [facility] Address: [address] [place] [address] Performed By: #### 3 1201-7 #### [facility] CLIA [id number] [address] [place] [address] [place] HIVINT Normal [facility] Comment on above: Order Comment: Speci men Type: BLOOD SPECIMEN Ordering Facility: [facility] Address: [address] [place], [place] [id number] Result Comment: No e vidence of HIV-1 or HIV-2 infection. Should recent infection be suspected, repeat testing may be considered 2-3 weeks after this draw. [place] Rev. Code 3701.243(E): This information has been disclosed to you from confidential records protected from disclosure by state law. ???You shall make no further disclosure of this information without the specific, written, and informed release of the individual to whom it pertains or as otherwise permitted by state law. A general authorization for the release of medical or other information is not sufficient for the purpose of the release of HIV test results or diagnoses. Performed By: #### 3 1201-7 #### [facility] CLIA [id number] [address] [place] [address] [place] LIPID PANEL, NONFASTINGon Cholesterol [Mass/Vol] 184 mg/dL Normal <200 [facility] Comment on above: Order Comment: Speci men Type: BLOOD SPECIMEN Ordering Facility: [facility] Address: [address] [place] [address] Result Comment: <200 mg/dL, Desirable 200-239 mg/dL, Borderline high >239 mg/dL, High Performed By: #### L IPNF, 27460-0 #### [facility] CLIA [id number] [address] [place] [address] [place] HDL CHOLESTEROL, NF 70 mg/dL Normal >39 [facility] Comment on above: Order Comment: Speci men Type: BLOOD SPECIMEN Ordering Facility: [facility] Address: [address] [place], [place] [id number] Result Comment: 40-5 9 mg/dL, Acceptable >59 mg/dL, High: Negative risk factor for coronary heart disease <40 mg/dL, Low: Positive risk factor for coronary heart disease Performed By: #### L IPNF, 55470-0 #### [facility] CLIA [id number] [address] [place] [address] LDL CHOLESTEROL, NF 104 mg/dL High <100 [facility] Comment on above: Order Comment: Viri ash Type: BLOOD SPECIMEN Ordering Facility: [facility] Address: [address] [place] [address] Result Comment: <100 mg/dL, Optimal 100-129 mg/dL, Near optimal/above optimal 130-159 mg/dL, Borderline high 160-189 mg/dL, High >189 mg/dL, Very high Secondary prevention optimal LDL Cholesterol levels are recommended to be < 70 mg/dL Performed By: #### L MON[place]NA, 17065-0 #### [facility] CLIA [id number] [address] [place] [address] LDL/HDL RATIO, NF 1.49 mg/dL Normal <2.54 [facility] Comment on above: Order Comment: Viri ash Type: BLOOD SPECIMEN Ordering Facility: [facility] Address: [address] [place] [address] Result Comment: Refroseanna wynn: 1. National Cholesterol Education Program ATP III Guideline At-A-Glance Quick Desk Reference: National Heart, Lung, and Blood [place]. National Institutes of Health. 2001: NIH Publication No. 01-3305. 2. An International Atherosclerosis Society position paper: global recommendations for the management of dyslipidemia: executive summary, Atherosclerosis. 2014: 232(2):410-413. Performed By: #### L MON[place]NA, 50395-0 #### [facility] CLIA [id number] [address] [place] [address] NON HDL CHOL, NF 114 mg/dL Normal <130 [facility] Comment on above: Order Comment: Viri ash Type: BLOOD SPECIMEN Ordering Facility: [facility] Address: [address] [place] [address] Result Comment: <130 mg/dL, Optimal 130-159 mg/dL, Near optimal/above optimal 160-189 mg/dL, Borderline high 190-219 mg/dL, High >219 mg/dL, Very high Secondary prevention optimal non HDL Cholesterol levels are recommended to be <100 mg/dL Performed By: #### L IPNF, 59417-1 #### [facility] CLIA [id number] [address] [place] [address] [place] T CHOL/HDL RATIO NF 2.63 mg/dL Normal <5.10 [facility] Comment on above: Order Comment: Speci men Type: BLOOD SPECIMEN Ordering Facility: [facility] Address: [address] [place] [address] Performed By: #### L IPNF, 29422-8 #### [facility] CLIA [id number] [address] [place] [address] [place] TRIGLYCERIDES, NF 49 mg/dL Normal <150 [facility] Comment on above: Order Comment: Speci men Type: BLOOD SPECIMEN Ordering Facility: [facility] Address: [address] [place] [address] Result Comment: <150 mg/dL, Normal 150-199 mg/dL, Borderline high 200-499 mg/dL, High >499 mg/dL, Very high Performed By: #### L IPNF, 84671-5 #### [facility] CLIA [id number] [address] [place] [address] STATES OF [facility] VLDL CHOLESTEROL, NF 10 mg/dL Normal <30 [facility] Comment on above: Order Comment: Speci men Type: BLOOD SPECIMEN Ordering Facility: [facility] Address: [address] [place] [address] Performed By: #### L IPNF, 74138-6 #### [facility] CLIA [id number] [address] [place] [address] [place] Vital Signs Date Time Vital Sign Value Performing Clinician Luis romero 02-20-2025 08:10-0400 Body height 162.[address] Karen Wall MD Work Phone: [facility] 02-20-2025 08:10-0400 Body mass index (BMI) [Ratio] 25.2 kg/m2 Dr. Karen Wall MD Work Phone: [facility] 02-20-2025 08:10-0400 Body temperature 98.6 [degF] Dr. Karen Wall MD Work Phone: [facility] 02-20-2025 08:10-0400 Body weight 66.[address] Karen Wall MD Work Phone: [facility] 02-20-2025 08:10-0400 Diastolic blood pressure 70 mm[Hg] Dr. Karen Wall MD Work Phone: [facility] 02-20-2025 08:10-0400 Heart rate 86 /min Dr. Karen Wall MD Work Phone: [facility] 02-20-2025 08:10-0400 Respiratory rate 16 /min Dr. Karen Wall MD Work Phone: [facility] 02-20-2025 08:10-0400 SaO2% (BldA) [Mass fraction] 99 % Dr. Karen Wall MD Work Phone: [facility] 02-20-2025 08:10-0400 Systolic blood pressure 110 mm[Hg] Dr. Karen Wall MD Work Phone: [facility] 08-24-2023 08:29-0500 Body height 162.56 cm No Primary Care Physician [facility] 08-24-2023 08:29-0500 Body mass index (BMI) [Ratio] 24.9 kg/m2 No Primary Care Physician [facility] 08-24-2023 08:29-0500 Body temperature 98.2 [degF] No Primary Care Physician [facility] 08-24-2023 08:29-0500 Body weight 65.77 kg No Primary Care Physician [facility] 08-24-2023 08:29-0500 Diastolic blood pressure 76 mm[Hg] No Primary Care Physician [facility] 08-24-2023 08:29-0500 Heart rate 70 /min No Primary Care Physician [facility] 08-24-2023 08:29-0500 Respiratory rate 14 /min No Primary Care Physician [facility] 08-24-2023 08:29-0500 SaO2% (BldA) [Mass fraction] 98 % No Primary Care Physician [facility] 08-24-2023 08:29-0500 Systolic blood pressure 108 mm[Hg] No Primary Care Physician [facility] 06-27-2023 09:55-0500 Body mass index (BMI) [Ratio] 24.9 kg/m2 No Primary Care Physician [facility] 06-27-2023 09:55-0500 Body weight 65.82 kg No Primary Care Physician [facility] 06-27-2023 09:55-0500 Diastolic blood pressure 72 mm[Hg] No Primary Care Physician [facility] 06-27-2023 09:55-0500 Systolic blood pressure 118 mm[Hg] No Primary Care Physician [facility] 01-10-2023 15:04-0400 Body height 162.56 cm No Primary Care Physician [facility] 01-10-2023 15:04-0400 Body mass index (BMI) [Ratio] 23.3 kg/m2 No Primary Care Physician [facility] 01-10-2023 15:04-0400 Body temperature 96.8 [degF] No Primary Care Physician [facility] 01-10-2023 15:04-0400 Body weight 61.68 kg No Primary Care Physician [facility] 01-10-2023 15:04-0400 Diastolic blood pressure 82 mm[Hg] No Primary Care Physician [facility] 01-10-2023 15:04-0400 Heart rate 83 /min No Primary Care Physician [facility] 01-10-2023 15:04-0400 Respiratory rate 16 /min No Primary Care Physician [facility] 01-10-2023 15:04-0400 SaO2% (BldA) [Mass fraction] 99 % No Primary Care Physician [facility] 01-10-2023 15:04-0400 Systolic blood pressure 138 mm[Hg] No Primary Care Physician [facility] 12-31-2021 07:59-0400 Body height 165.1 cm Brenna Gallo DRY LUMBER GRADER.CLIENT SERVICE SUPERVISOR Work Phone: [facility] 12-31-2021 07:59-0400 Body weight 57.15 kg Brenna Gallo DRY LUMBER GRADER.CLIENT SERVICE SUPERVISOR Work Phone: [facility] 12-31-2021 07:59-0400 Diastolic blood pressure 82 mm[Hg] Brenna Gallo DRY LUMBER GRADER.CLIENT SERVICE SUPERVISOR Work Phone: [facility] 12-31-2021 07:59-0400 Heart rate 68 /min Brenna Gallo DRY LUMBER GRADER.CLIENT SERVICE SUPERVISOR Work Phone: [facility] 12-31-2021 07:59-0400 Respiratory rate 16 /min Brenna Gallo DRY LUMBER GRADER.CLIENT SERVICE SUPERVISOR Work Phone: [facility] 12-31-2021 07:59-0400 SaO2% (BldA) [Mass fraction] 100 % Brenna Gallo DRY LUMBER GRADER.CLIENT SERVICE SUPERVISOR Work Phone: [facility] 12-31-2021 07:59-0400 Systolic blood pressure 120 mm[Hg] Brenna Gallo DRY LUMBER GRADER.CLIENT SERVICE SUPERVISOR Work Phone: [facility] Encounters Encounter Date Encounter Type Care Provider Facility Start: 02-20-2025 End: 02-20-[address] Karen Wall MD Work Phone: -[facility] Start: 02-20-2025 End: 02-20-[address] Karen Wall MD -[facility] Work Phone: Start: 07-03-2024 End: 07-03-2024 ambulatory Karen Wall Facility:[facility] [place] [place] Start: 02-20-2024 End: 02-20-2024 ambulatory Karen Wall Facility:[facility] [place] [place] Start: 02-20-2024 End: 02-20-2024 ambulatory Karen Wall Facility:[facility] Start: 08-24-2023 End: 08-24-2023 Patient encounter procedure No Primary Care Physician [facility] Work Phone: Start: 08-24-2023 End: 08-24-2023 ambulatory No Primary Care Physician [facility] Work Phone: Start: 08-24-2023 End: 08-24-2023 ambulatory Karen [place] Facility:[facility] Start: 06-27-2023 End: 06-27-2023 Patient encounter procedure No Primary Care Physician [facility] Work Phone: Start: 01-10-2023 End: 01-10-2023 ambulatory No Primary Care Physician [facility] Work Phone: Start: 01-10-2023 End: 01-10-2023 Patient encounter procedure No Primary Care Physician [facility] Start: 01-10-2023 End: 01-10-2023 Patient encounter procedure No Primary Care Physician [facility] Start: 12-31-2021 End: 12-31-2021 Patient encounter procedure Brenna Gallo APRN.CLIENT SERVICE SUPERVISOR Work Phone: [facility] [place] Comment on above: Routine medical exam (Primary Dx); Encounter for immunization; Special screening examination for viral disease; Screening for HIV (human immunodeficiency virus); Well woman exam with routine gynecological exam; Encounter for screening for diabetes mellitus; Screening for lipid disorders; Skin lesion Start: 12-31-2021 End: 12-31-2021 Patient encounter status Brenna Gallo APRN.CLIENT SERVICE SUPERVISOR Work Phone: [facility] [place] Procedures Date Procedure Procedure Detail Performing Clinician Start: 12-31-2021 Adult depression screening assessment Brenna Gallo APRN.CLIENT SERVICE SUPERVISOR Work Phone: Plan of Treatment Date Care Activity Detail Author Start: 08-24-2023 Patient referral [facility] Work Phone: Start: 01-10-2023 Patient referral [facility] Work Phone: Start: 12-31-2022 Adult depression screening assessment DEPRESSION SCREENING [facility] Start: 08-09-2022 COVID-19 VACCINE (#1) COVID-19 VACCI NE (#1) [facility] Comment on above: Postponed from 04/24 (Postponed To Appropriate Date) Start: 04-08-2022 Influenza vaccination INFLUENZ A (Season Ended) [facility] Start: 12-31-2021 End: 03-02-2022 Basic metabolic 2000 panel - Serum or Plasma [facility] Work Phone: Comment on above: Expected: 12/31/2021 , Expires: 03/02/2022 Start: 12-31-2021 End: 03-02-2022 Hepatitis C virus Ab [Presence] in Serum [facility] Work Phone: Comment on above: Expected: 12/31/2021 , Expires: 03/02/2022 Start: 12-31-2021 End: 03-02-2022 HIV 1+2 Ab [Presence] in Serum or Plasma by Immunoassay [facility] Work Phone: Comment on above: Expected: 12/31/2021 , Expires: 03/02/2022 Start: 12-31-2021 End: 03-02-2022 LIPID PANEL, NONFASTING [facility] Work Phone: Comment on above: Expected: 12/31/2021 , Expires: 03/02/2022 Start: 2014 PAP TESTING PAP TESTING [facility] Start: 2012 Urine microalbumin profile DTAP,TDAP,TD (1 - Tdap) [facility] Start: 2011 HEPATITIS C SCREENING HEPATITIS C SC REENING [facility] Start: 2011 HIV SCREENING HIV SCREENING [facility] Patient referral [facility] Work Phone: XR Cervical spine 4 or 5 Views [facility] Immunizations Immunization Date Immunization Notes Care Provider Fa cili 05-26-2024 Covid (Spikevax) Dr. Karen Wall MD Work Phone: [facility] 05-26-2024 influenza, seasonal, injectable, preservative free Dr. Karen Wall MD Work Phone: [facility] 02-21-2023 tetanus toxoid, redu wilson diphtheria toxoid, and acellular pertussis vaccine, adsorbed No Primary Care Physician [facility] 05-21-2022 Covid Pfizer Bivalen t Booster No Primary Care Physician [facility] 05-09-2022 influenza, injectabl e, quadrivalent, preservative free No Primary Care Physician [facility] 05-09-2022 influenza, seasonal, injectable No Primary Care Physician [facility] 08-19-2021 Covid (Moderna) No Primary C are Physician [facility] 12-09-2020 Covid (Moderna) No Primary C are Physician [facility] 11-11-2020 Covid (Moderna) No Primary C are Physician [facility] 04-01-2011 meningococcal polysaccharide (groups A, C, Y and W-135) diphtheria toxoid conjugate vaccine (MCV4P) No Primary Care Physician [facility] 04-01-2011 tetanus toxoid, redu wilson diphtheria toxoid, and acellular pertussis vaccine, adsorbed No Primary Care Physician [facility] 02-24-2005 measles, mumps and rubella virus vaccine No Primary Care Physician [facility] Payers Date Payer Category Payer Self-pay 2023 Unknown [id number] 2018 Unknown [employer] BLUE CARD PPO OOS [id number] 2018-Present [phone] [id number] [place] [address] PPO [id number] Unknown [id number] Unknown [id number] Unknown [id number] Unknown [id number] Unknown [id number] Unknown [id number] Social History Date Type Detail Facility Start: 06-24-2014 End: 02-20-2025 Tobacco smoking status NHIS Never smoked tobacco [facility] Start: 06-24-2014 Tobacco use and exposure Smoke less tobacco non-user [facility] Start: 12-31-2021 Alcohol intake Current drinke r of alcohol (finding) [facility] Start: 12-31-[address] [facility] Start: 12-24-2021 History SDOH Alcohol Frequency 3 [facility] Start: 12-24-2021 History SDOH Alcohol Std Drinks 2 [facility] Start: 12-24-2021 History SDOH Alcohol Binge 1 [facility] Start: 12-24-2021 History SDOH Social Connections Living 8 [facility] Start: 12-24-2021 History SDOH Stress 4 [facility] Start: 1993 Sex Assigned At Not on file C [facility] Start: 12-21-2021 End: 12-31-2021 Exposure to SARS-CoV-2 (event) Not sure [facility] Work Phone: Start: 01-10-2023 End: 08-23-2023 Tobacco smoking status NHIS Unknown if ever smoked [facility] Start: 1995 Sex Assigned At Female W [facility] Progress note 01-14-2022 Note Date & Type Note Facility 01-14-2022 Note HNO ID: [id number] Author: Joy Munoz APRN.ANIMAL HUSBANDRY PROFESSOR Service: ? Author Type: Nurse Practitioner Type: Progress Notes Filed: 01/14/2022 9:44 AM Note Text: Naveed is a 26 year old who presents for an annual gynecologic exam without complaints. -Last RENEWABLE ENERGY DIVISION MANAGER [facility] [...] No History of PCOS: No History of minister assistant malignancy: none Pain with intercourse: No Postcoital bleeding: No OB History T0 L0 SAB0 IAB0 Ectopic0 Multiple0 Live Births0 International Relations Professor History LMP: 01/06/2022, Having periods Age at Menarche: Age at First : Age at Menopause: International Relations Professor History Comments: Sexual Activity: Yes; Male Contraception: [...] external genitalia normal, normal Bartholin's glands, urethra, [place]'s glands, no vulvar lesions, no cervical lesions, [...] cancer. -Genetic counseling ordered today. Pat Hyman. SENIOR PROJECT CONTROLS SPECIALIST student TEACHING PROVIDER (Physician/PA/DRY LUMBER GRADER) NOTE OF PERSONAL INVOLVEMENT IN CARE: I have personally seen and examined the patient and performed the medical decision-making components. I have reviewed the Advanced Practice Registered Nurse (DRY LUMBER GRADER) Student's documentation and verified the findings in the note as written. Any additions or changes are noted in bold/italics. Signature: Joy Muircalf Date: 01/14/2022 Time: 9:43 AM [facility] Progress note 12-31-2021 Note Date & Type Note Facility 12-31-2021 Note HNO ID: [id number] Author: Brenna Gallo APRN.CLIENT SERVICE SUPERVISOR Service: ? Author Type: Nurse Specialist Type: Progress Notes Filed: 12/31/2021 9:03 AM Note Text: SUBJECTIVE: COVID-19 VACCINE(1) Never done HEPATITIS C SCREENING Never done HIV SCREENING Never done DTAP,TDAP,TD(1 - Tdap) Never done PAP TESTING Never done HPI Naveed Daugherty is a 26 year old female. Has been seen at [facility] only, no other visits. Presents today to establish care at [facility]. 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 Going to [place] grief counselor. Mom passed in June. She [...] 68 Resp 16 Ht 165.1 cm (5' 5) Wt 57.2 kg (126 lb) LMP 10/02/2017 [...] ICD9: V72.31, ICD10: Z01.419 - CONSULT TO RENEWABLE ENERGY DIVISION MANAGER 6. Encounter for screening for diabetes mellitus - ICD9: V77.1, ICD10: Z13.1 - BASIC METABOLIC PNL 7. Screening for lipid disorders - ICD9: V77.91, ICD10: Z13.220 - LIPID PANEL, NONFASTING 8. Skin lesion - ICD9: 709.9, ICD10: L98.9 - CONSULT TO DERMATOLOGY Labs today. 1 year follow-up with PCP. Brenna Gallo APRN.[facility] History of Present illness Narrative 12-31-2021 Brenna Gallo APRN.[facility] - 12/31/2021 8:00 AM EDT Note Date & Type Note Facility 12-31-2021 History of Presen t illness Narrative SUBJECTIVE: COVID-19 VACCINE(1) Never done HEPATITIS C SCREENING Never done HIV SCREENING Never done DTAP,TDAP,TD(1 - Tdap) Never done PAP TESTING Never done HPI Naveed Daugherty is a 26 year old female. Has been seen at [facility] only, no other visits. Presents today to establish care at [facility]. 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 Going to [place] grief counselor. Mom passed in June. She [...] 66 Resp 16 Ht 165.1 cm (5' 5) Wt 57.2 kg (126 lb) LMP 10/02/2017 [...] ICD9: V72.31, ICD10: Z01.419 - CONSULT TO RENEWABLE ENERGY DIVISION MANAGER 6. Encounter for screening for diabetes mellitus - ICD9: V77.1, ICD10: Z13.1 - BASIC METABOLIC PNL 7. Screening for lipid disorders - ICD9: V77.91, ICD10: Z13.220 - LIPID PANEL, NONFASTING 8. Skin lesion - ICD9: 709.9, ICD10: L98.9 - CONSULT TO DERMATOLOGY Labs today. 1 year follow-up with PCP. Brenna Gallo APRN.CNS documented in this encounter [facility] Chief complaint+Reason for visit Narrative Note Date & Type Note Facility Chief complaint+Reason for visit Narrative Reason for Visit Oral contraceptive u se Immunization due Establishing care with new doctor, encounter for Moderate anxiety Chronic neck pain Moderately severe depression [facility] Work Phone: Evaluation note Note Date & Type Note Facility Evaluation note Diagnosis Routine medical exam- Primary Routine general medical examination at a health care facility Encounter for immunization Need for other specified prophylactic vaccination against single bacterial disease Special screening examination for viral disease Special screening examination for unspecified viral disease Screening for HIV (human immunodeficiency virus) Special screening examination for other specified viral diseases Well woman exam with routine gynecological exam Routine gynecological examination Encounter for screening for diabetes mellitus Screening for diabetes mellitus Screening for lipid disorders Skin lesion Unspecified disorder of skin and subcutaneous tissue documented in this encounter [facility] Evaluation note Note Date & Type Note Facility Evaluation note Diagnosis Onset Date Oral contraceptive use nonea ctive Immunization due noneactive Establishing care with new d octor, encounter for noneactive Moderate anxiety noneactive Chronic neck pain noneactive Moderately severe depression noneactive [facility] Work Phone: Evaluation note Note Date & Type Note Facility Evaluation note Diagnosis Onset Date Family history of breast cancer in mother acute Encounter for routine gyneco logical examination noneactive Vitamin D deficiency acute Oral contraceptive use nonea ctive Influenza vaccination declined noneactive Multiple joint pain noneacti ve Moderate anxiety noneactive Chronic neck pain noneactive Moderately severe depression noneactive [facility] Work Phone: Evaluation note Note Date & Type Note Facility Evaluation note Diagnosis Onset Date Resolution Vitamin D deficiency acute February 20, 2025 8:00am Arthralgia of multiple joints noneactive February 20, 2025 8:00am Moderate anxiety noneactive February 8:00am Chronic neck pain noneactive February 202024 8:00am Moderately severe depression noneactive February 20, 2025 8:00am [facility] Work Phone: Reason for referral (narrative) Note Date & Type Note Facility Reason for referral (narrative) No reason for referral information available [facility] Work Phone: Reason for Referral Specialty Diagnoses / Procedures Referred By Monica powers Referred To Contact Dermatology Diagnoses Skin lesion Procedures CONSULT TO DERMATOLOGY Brenna Gallo APRN.CLIENT SERVICE SUPERVISOR [address] [place] [address] Referral ID Status Reason Start Date Expiration Date Visits Requested Visits Authorized [id number] Ref Not Required PCP Requested Referral 12/31/2021 12/31/2022 1 1 Specialty Diagnoses / Procedures Referred By Monica t Referred To Contact Diagnoses Well woman exam with routine gynecological exam Procedures CONSULT TO RENEWABLE ENERGY DIVISION MANAGER OFFICE/OUTPATIENT [facility] HIGH MDM 60-74 MINUTES Brenna Gallo, DRY LUMBER GRADER.CLIENT SERVICE SUPERVISOR [address] [place] [address] Referral ID Status Reason Start Date Expiration Date Visits Requested Visits Authorized [id number] Authorized PCP Requested Referral Auto-Generate d Referral 12/31/2021 12/31/2022 1 1 Summary Purpose Family History Relationship Condition Age at Onset Recorded Date/[place] mother Malignant neoplasm of breast Unknown Depression Unknown Seizure Unknown father Depression Unknown grandfather Cerebrovascular accident (CVA) Unknown Relationship Condition Age at Onset Recorded Date/T [place] mother Malignant neoplasm of breast Unknown Depression Unknown Seizure Unknown Meniere's disease Unknown father Depression Unknown grandfather Cerebrovascular accident (CVA) Unknown Advance Directives No Advanced Directives Records FoundNo Advanced Directives Records Found Chief Complaint and Reason for Visit Chief Complaint 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 Reason for Visit Family history of br east cancer in mother Encounter for routine gynecological examination Vitamin D deficiency Oral contraceptive use Influenza vaccination declined Multiple joint pain Moderate anxiety Chronic neck pain Moderately severe depression Chief Complaint Admit Date YEARLY February 20, 2025 8:00 am Reason for Visit Admit Date Vitamin D deficiency February 20, 2025 8:0 0am Arthralgia of multiple joints February 20, 2025 8:00am Moderate anxiety February 20, 2025 8:00 am Chronic neck pain February 20, 2025 8:00 am Moderately severe depression February 20, 2025 8:00am Additional Source Comments Source Comments (unrecognize d section and content) In the event this informatio n is protected by the Federal Confidentiality of Alcohol and Drug Abuse Patient Records regulations: The Federal rules restrict any use of the information to criminally investigate or prosecute any alcohol or drug abuse patient.[facility] Reason for Visit (unrecogniz ed section and content) Reason Comments Establish Care Care Teams (unrecognized sec tion and content) Windows Desktop Support Relationship Specialty Start Date End Date Shanice Rocha MD [address] [place] [address] PCP - General Internal Medicine 12/31/21 Team Status: Active Member Role Status Dates No Primary Care Physician Primary Care Provider Active Team Status: Inactive Member Role Status Dates No Primary Care Physician Primary Care Provider, Refer ring Provider Active Dr. Karen Wall MD Attending Provider Active Team Status: Inactive Member Role Status Dates No Primary Care Physician Primary Care Provider Active Dr. Karen Wall MD Attending Provider Active Team Status: Active Member Role Status Dates Dr. Karen Wall MD Primary Care Provider Active Team Status: Inactive Member Role Status Dates No Primary Care Physician Referring Provider Active Parisa Babin PACKAGE LINER, PACKAGE LINER-C Attending Provider Active Team Status: Inactive Member Role Status Dates Dr. Karen Wall MD Primary Care Pro vider, Attending Provider, Referring Provider Active Team Status: Inactive Member Role Status Dates Dr. Karen Wall MD Primary Care Provider, Attendi ng Provider Active Team Status: Active Member Role/Relationship Status Dates Dr. Karen Wall MD Primary Care Provider Active Team Status: Inactive Member Role/Relationship Status Dates Dr. Karen Wall MD Primary Care Provider Active Start: February 20, 2025 End: February 20, 2025 Dr. Karen Wall MD Attending Provider Active Start: February 20, 2025 End: February 20, 2025 Dr. Karen Wall MD Referring Provider Active Start: February 20, 2025 End: February 20, 2025 INFORMATION SOURCE (unrecogn ized section and content) DATE CREATED AUTHOR 01/25/2022 [facility] DATE CREATED AUTHOR AUTHOR'S ORGANIZ ATION 07/05/2024 [facility] Goals (unrecognized section and content) Goals may be documented in a n alternate sectionGoals may be documented in an alternate sectionGoals may be documented in an alternate section FOR RECORDS PERTAINING TO PATIENTS WHO ARE [...] BE BASED ON THE PRIMARY CLINICAL RECORDS. [facility]. provides no warranty or guarantee of the accuracy or completeness of information in this document.
--- OUTSIDE RECORDS SUMMARY | 2025-02-20 19:18 | XMS RPT_ITS | CCD ---
Author Organization [facility] Care Team Providers Care Aviation Tactical Readiness Officer Name Role Phone Shanice Rocha MD Primary Care Provider Care Physician, No Primary Primary Care Provider Unavailable Care Physician, No Primary Referring Provider Un available Dr. Karen Wall Attending Provider Care Physician, No Primary Referring Provider Un available Olaf SUPERVISING PRODUCER, CHRISTY Mccauley Attending Provider Dr. Karen Wall Primary Care Provider Dr. Karen Wall Attending Provider [phone] Dr. Karen Wall Referring Provider Mae, Karen Primary Care Unavailable [place], Karen Attending Unavailable [place], Karen Referring Unavailable Mae, Karen Primary Care Unavailable [place], Karen Attending Unavailable Mae, Karen Primary Care Unavailable [place], Karen Attending Unavailable Mae, Karen Referring Unavailable [place], Karen Referring Unavailable Mae, Karen Primary Care Unavailable [place], Karen Attending Unavailable [place], Karen Primary Care Unavailable Parisa Babin Attending Unavailable Mae, Karen Referring Unavailable Dr. Karen Wall MD Primary Care Provider [phone] Dr. Karen Wall MD Attending Provider Dr. Karen Wall MD Referring Provider Medications Current Medications Medication Drug Class(es) Dates Sig (Normalized) Sig (Original) [place] (Nk) (1 source) Start: 07-03-2024 [place] (Nk) Active July 03, 2024 1:00am NORGESTIMATE-ETHINYL [...] Name Value Interpretation Reference Range Facil ity Medical Assistant Secretary Office Visit Reporton 07-03-2024 Medical Assistant Secretary Office Visit Report [facility] [address], [address] [place] [address] OFFICE VISIT Date of Service: 07/03/24 MR#: [id number] Acct: [id number] Name: NAVEED DAUGHERTY #: [id number] : 1995 Provider: CHRISTY jerome Age/Sex: 29/F Location[place] [facility] [place] Status: Signed Intake Vital Signs 06/27/23 10:02 02/20/24 09:04 07/03/24 09:59 07/03/24 10:06 Height 5 ft 4 in 5 ft 4 in 5 ft 4 in 5 ft 4 in Weight: 151 lb 6 oz BMI 25.9 BP 114/82 H Intake 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 Normal [facility] CCP IgG Antibodieson 02-20-2 024 CCP IgG Ab. 4 units Normal 0-19 [facility] Comment on above: Result Comment: Nega tive <20 Weak positive 20 - 39 Moderate positive 40 - 59 Strong positive >59 Performed at: [address] [id number] School Secretary: Anthony Sanchez PhD, Phone: [phone] Performed By: #### L 7000.5300, L501.3620, L100.0100, L505.7010, L4600.0100, L500.4050 #### [facility] [address] [place], [address] Lyme Screen W/Reflex WBon LYME SCREEN Ab Negative Normal Negative [facility] Comment on above: Result Comment: Lyme [...] 7000.5300, L501.3620, L100.0100, L505.7010, L4600.0100, L500.4050 #### [facility] [address] [place], [address] CBC W/Diff, Automatedon 02-05 Absolute Lymph 1.77 X10 3/uL Normal 0.83-4.51 [facility] Comment on above: Performed By: #### L 7000.5300, L501.3620, L100.0100, L505.7010, L4600.0100, L500.4050 #### [facility] [address] [place], [address] Absolute Neut 1.8 X10 3/uL Low 2.0-7.7 [facility] Comment on above: Performed By: #### L 7000.5300, L501.3620, L100.0100, L505.7010, L4600.0100, L500.4050 #### [facility] [address] [place], [address] Basophils/100 WBC (Bld) 1.2 % High 0-1 [facility] Comment on above: Performed By: #### L 7000.5300, L501.3620, L100.0100, L505.7010, L4600.0100, L500.4050 #### [facility] [address] [place], [address] Eosinophils/100 WBC (Bld) 8.9 % High 0-5 [facility] Comment on above: Performed By: #### L 7000.5300, L501.3620, L100.0100, L505.7010, L4600.0100, L500.4050 #### [facility] [address] [place], [address] Erythrocyte distribution width (RBC) [Ratio] 12.9 % Normal 11.6-14.6 [facility] Comment on above: Performed By: #### L 7000.5300, L501.3620, L100.0100, L505.7010, L4600.0100, L500.4050 #### [facility] [address] [place], [address] Hematocrit (Bld) [Volume fraction] 37.7 % Normal 37-47 [facility] Comment on above: Performed By: #### L 7000.5300, L501.3620, L100.0100, L505.7010, L4600.0100, L500.4050 #### [facility] [address] [place], [address] Hemoglobin (Bld) [Mass/Vol] 11.9 g/dL Low 12.0-15.0 [facility] Comment on above: Performed By: #### L 7000.5300, L501.3620, L100.0100, L505.7010, L4600.0100, L500.4050 #### [facility] [address] [place], [address] IG% 0.200 Normal 0.0-0.9 [facility] Comment on above: Result Comment: IG% - Immature Granulocytes (promyelocytes, myelocytes and metamyelocytes) > 1% indicates that a LEFT SHIFT is Present. Performed By: #### L 7000.5300, L501.3620, L100.0100, L505.7010, L4600.0100, L500.4050 #### [facility] [address] [place], [address] Lymphocytes/100 WBC (Bld) 41.4 % High 19-41 [facility] Comment on above: Performed By: #### L 7000.5300, L501.3620, L100.0100, L505.7010, L4600.0100, L500.4050 #### [facility] [address] [place], [address] MCH (RBC) [Entitic mass] 29.8 pg Normal 27.0-32.0 [facility] Comment on above: Performed By: #### L 7000.5300, L501.3620, L100.0100, L505.7010, L4600.0100, L500.4050 #### [facility] [address] [place], [address] MCHC (RBC) [Mass/Vol] 31.6 g/dL Low 32-36 [facility] Comment on above: Performed By: #### L 7000.5300, L501.3620, L100.0100, L505.7010, L4600.0100, L500.4050 #### [facility] [address] [place], [address] MCV (RBC) [Entitic vol] 94.5 fL Normal 81-99 [facility] Comment on above: Performed By: #### L 7000.5300, L501.3620, L100.0100, L505.7010, L4600.0100, L500.4050 #### [facility] [address] [place], [address] Monocytes/100 WBC (Bld) 7.0 % Normal 0-10 [facility] Comment on above: Performed By: #### L 7000.5300, L501.3620, L100.0100, L505.7010, L4600.0100, L500.4050 #### [facility] [address] [place], [address] Neutrophils/100 WBC (Bld) 41.3 % Low 47-70 [facility] Comment on above: Performed By: #### L 7000.5300, L501.3620, L100.0100, L505.7010, L4600.0100, L500.4050 #### [facility] [address] [place], [address] Nucleated RBC (Bld) [#/Vol] 0 10*3/uL Normal 0-5 [facility] Comment on above: Performed By: #### L 7000.5300, L501.3620, L100.0100, L505.7010, L4600.0100, L500.4050 #### [facility] [address] [place], [address] Platelet mean volume (Bld) [Entitic vol] 10.4 fL Normal 6.2-12.0 [facility] Comment on above: Performed By: #### L 7000.5300, L501.3620, L100.0100, L505.7010, L4600.0100, L500.4050 #### [facility] [address] [place], [address] Platelets (Bld) [#/Vol] 309 10*3/uL Normal 150-450 [facility] Comment on above: Performed By: #### L 7000.5300, L501.3620, L100.0100, L505.7010, L4600.0100, L500.4050 #### [facility] [address] [place], [address] RBC (Bld) [#/Vol] 3.99 10*6/uL Low 4.2-5.4 [facility] Comment on above: Performed By: #### L 7000.5300, L501.3620, L100.0100, L505.7010, L4600.0100, L500.4050 #### [facility] [address] [place], [address] RDW SD 44.6 fl High 35.1-43.9 [facility] Comment on above: Performed By: #### L 7000.5300, L501.3620, L100.0100, L505.7010, L4600.0100, L500.4050 #### [facility] [address] [place], [address] WBC (Bld) [#/Vol] 4.3 10*3/uL Low 4.4-11.0 [facility] Comment on above: Performed By: #### L 7000.5300, L501.3620, L100.0100, L505.7010, L4600.0100, L500.4050 #### [facility] [address] [place], [address] CPK Total, Creatine Kinaseon 02-20-2024 CPK TOTAL 72 U/L Normal 26-192 [facility] Comment on above: Performed By: #### L 7000.5300, L501.3620, L100.0100, L505.7010, L4600.0100, L500.4050 #### [facility] [address] [place], [address] Comprehensive Metabolic Prof ilon 02-20-2024 Albumin [Mass/Vol] 3.5 g/dL Normal 3.2-5.0 [facility] Comment on above: Performed By: #### L 7000.5300, L501.3620, L100.0100, L505.7010, L4600.0100, L500.4050 #### [facility] [address] [place], [address] Albumin/Globulin [Mass ratio] 0.9 {ratio} Normal 0.9-2.4 [facility] Comment on above: Performed By: #### L 7000.5300, L501.3620, L100.0100, L505.7010, L4600.0100, L500.4050 #### [facility] [address] [place], [address] ALK P 68 U/L Normal 45-117 [facility] Comment on above: Performed By: #### L 7000.5300, L501.3620, L100.0100, L505.7010, L4600.0100, L500.4050 #### [facility] [address] [place], [address] ALT [Catalytic activity/Vol] 13 U/L Normal 13-56 [facility] Comment on above: Performed By: #### L 7000.5300, L501.3620, L100.0100, L505.7010, L4600.0100, L500.4050 #### [facility] [address] [place], [address] AST [Catalytic activity/Vol] 18 U/L Normal 15-37 [facility] Comment on above: Performed By: #### L 7000.5300, L501.3620, L100.0100, L505.7010, L4600.0100, L500.4050 #### [facility] [address] [place], [address] Bilirubin [Mass/Vol] 0.30 mg/dL Normal 0.20-1.00 [facility] Comment on above: Result Comment: For patients on eltrombopag therapy, use of Dimension Bristow TBIL is not recommended. Performed By: #### L 7000.5300, L501.3620, L100.0100, L505.7010, L4600.0100, L500.4050 #### [facility] [address] [place], [address] BUN/CRE 12.9 RATIO Normal 10-20 [facility] Comment on above: Performed By: #### L 7000.5300, L501.3620, L100.0100, L505.7010, L4600.0100, L500.4050 #### [facility] [address] [place], [address] CA,Total 9.3 mg/dL Normal 8.5-10.1 [facility] Comment on above: Performed By: #### L 7000.5300, L501.3620, L100.0100, L505.7010, L4600.0100, L500.4050 #### [facility] [address] [place], [address] Chloride [Moles/Vol] 105 mmol/L Normal 98-107 [facility] Comment on above: Performed By: #### L 7000.5300, L501.3620, L100.0100, L505.7010, L4600.0100, L500.4050 #### [facility] [address] [place], [address] CO2 [Moles/Vol] 24.0 mmol/L Normal 21.0-32.0 [facility] Comment on above: Performed By: #### L 7000.5300, L501.3620, L100.0100, L505.7010, L4600.0100, L500.4050 #### [facility] [address] [place], [address] Creatinine [Mass/Vol] 0.77 mg/dL Normal 0.55-1.02 [facility] Comment on above: Result Comment: The validity of the calculated GFR GFRAA in patients over 70 years has not been determined. Clinical correlation is essential. Performed By: #### L 7000.5300, L501.3620, L100.0100, L505.7010, L4600.0100, L500.4050 #### [facility] [address] [place], [address] EST GFR - AA 112 mL/min Normal >60 [facility] Comment on above: Result Comment: Afri can Dominican GFR Calc Performed By: #### L 7000.5300, L501.3620, L100.0100, L505.7010, L4600.0100, L500.4050 #### [facility] [address] [place], [address] GAP 8 Normal 5-15 [facility] Comment on above: Performed By: #### L 7000.5300, L501.3620, L100.0100, L505.7010, L4600.0100, L500.4050 #### [facility] [address] [place], [address] GFR/1.73 sq M.predicted among non-blacks MDRD (S/P/Bld) [Vol rate/Area] 93 mL/min/{1.73_m2} Normal >60 [facility] Comment on above: Result Comment: Non- GFR Calc Performed By: #### L 7000.5300, L501.3620, L100.0100, L505.7010, L4600.0100, L500.4050 #### [facility] [address] [place], [address] Globulin (S) [Mass/Vol] 3.8 g/dL Normal 2.2-4.2 [facility] Comment on above: Performed By: #### L 7000.5300, L501.3620, L100.0100, L505.7010, L4600.0100, L500.4050 #### [facility] [address] [place], [address] Glucose [Mass/Vol] 76 mg/dL Normal 74-106 [facility] Comment on above: Performed By: #### L 7000.5300, L501.3620, L100.0100, L505.7010, L4600.0100, L500.4050 #### [facility] [address] [place], [address] Potassium [Moles/Vol] 4.5 mmol/L Normal 3.5-5.1 [facility] Comment on above: Performed By: #### L 7000.5300, L501.3620, L100.0100, L505.7010, L4600.0100, L500.4050 #### [facility] [address] [place], [address] Sodium [Moles/Vol] 137 mmol/L Normal 136-145 [facility] Comment on above: Performed By: #### L 7000.5300, L501.3620, L100.0100, L505.7010, L4600.0100, L500.4050 #### [facility] [address] [place], [address] T PROT 7.3 g/dL Normal 6.4-8.2 [facility] Comment on above: Performed By: #### L 7000.5300, L501.3620, L100.0100, L505.7010, L4600.0100, L500.4050 #### [facility] [address] [place], [address] Urea nitrogen [Mass/Vol] 10 mg/dL Normal 7-18 [facility] Comment on above: Performed By: #### L 7000.5300, L501.3620, L100.0100, L505.7010, L4600.0100, L500.4050 #### [facility] [address] [place], [address] Rheumatoid Factoron 02-20-20 RHEUMATOID FAC < 10.0 Normal <15 [facility] Comment on above: Performed By: #### L 7000.5300, L501.3620, L100.0100, L505.7010, L4600.0100, L500.4050 #### [facility] [address] [place], [address] Vitamin D,25 Hydroxyon 02-19 Vitamin D 25-OH 31.8 ng/mL Normal [facility] Comment on above: Result Comment: Shauna min D 25(OH) Status Range Deficiency <20 ng/mL (50nmol/L) Insufficiency 20 - 30 ng/mL (50 - 75 nmol/L) Sufficiency 30 - 100 ng/mL (75 - 250 nmol/L) Toxicity >100 ng/mL (>250 nmol/L) Performed By: #### L 506.1000 #### [facility] [address] [place], [place], [address] Internal Medicine Office Vis itotoribio 02-19-2024 Internal Medicine Office Visit [facility] [place], [place] [address] OFFICE VISIT Date of Service: 02/20/24 MR#: [id number] Acct: [id number] Name: NAVEED DAUGHERTY AJAY Rep #: [id number] : 1995 Provider: Dr. 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 Normal [facility] Basophil percentageOrdered B y: Karen Wall on 08-24-2023 Chloride [Moles/Vol] 107 mmol/L 98-107 [facility] Glucose [Mass/Vol] 66 mg/dL 74-106 [facility] Potassium [Moles/Vol] 3.8 mmol/L 3.5-5.1 [facility] Sodium [Moles/Vol] 138 mmol/L 136-145 [facility] Erythrocyte sedimentation ra teOrdered By: Karen Wall on 08-24-2023 ESR (Bld) [Velocity] 4 mm/h 0-30 [facility] - Chemistry and C hemistry - challengeOrdered By: Karen Wall on 08-24-2023 CO2 [Moles/Vol] 26.0 mmol/L 21.0-32.0 [facility] Magnesium [Mass/Vol] 2.3 mg/dL 1.6-2.6 [facility] Urea nitrogen/Creatinine [Mass ratio] 10.1 mg/mg 10-20 [facility] No Panel InformationOrdered By: Karen Wall on 08-24-2023 Anti-Nuclear Antibody Screen Negative Negative [facility] Comment on above: Performed at: [address] [id number] Director: Anthony Sanchez PhD, Phone: [phone] C-Reactive Protein Extended Range < 2.90 mg/L 0.0-3.0 [facility] Comment on above: C-Reactive Protein ( CRP) provides useful information for thediagnosis, therapy and monitoring of inflammatory processesand associated diseases. For the evaluation of Relative Riskfor Cardiovascular Disease, a High Sensitivity CRP (HSCRP)should be ordered. Centromere B Antibody Not Reportable [facility] Estimated GFR (MDRD) Amer 109 mL/min >60 [facility] Comment on above: GFR Calc Estimated GFR (MDRD) Non-Af Amer 90 mL/min >60 [facility] Comment on above: Non- GFR Calc RUTH-1 Antibody Not Reportable [facility] AIRPLANE ENGINEER Antibody Not Reportable [facility] No Panel InformationOrdered By: Parisa Babin on 08-24-2023 Vitamin D 25-Hydroxy 23.4 ng/mL [facility] Comment on above: Vitamin D 25(OH) Sta tus Range Deficiency <20 ng/mL (50nmol/L) Insufficiency 20 - 30 ng/mL (50 - 75 nmol/L) Sufficiency 30 - 100 ng/mL (75 - 250 nmol/L) Toxicity >100 ng/mL (>250 nmol/L) SS-B IgG antibody assayOrder ed By: Karen Wall on 08-24-2023 Sjogrens syndrome-B extractable nuclear IgG Qn (S) Not Reportable [facility] Serum DNA double strand anti body assay (units/volume)Ordered By: Karen Wall on 08-24-2023 DNA double strand Ab Qn (S) Not Reportable [facility] Serum Scl-70 antibody assay (units/volume)Ordered By: Karen Wall on 08-24-2023 SCL-70 extractable nuclear Ab Qn (S) Not Reportable [facility] Serum or plasma calcium noel urement (mass/volume)Ordered By: Karen Wall on 08-24-2023 Calcium [Mass/Vol] 9.0 mg/dL 8.5-10.1 [facility] Serum or plasma creatinine m easurement (mass/volume)Ordered By: Karen Wall on 08-24-2023 Creatinine [Mass/Vol] 0.80 mg/dL 0.55-1.02 [facility] Comment on above: The validity of the calculated GFR & GFRAA in patients over 70 years has not been determined. Clinical correlation is essential. Serum or plasma urea nitroge n measurement (mass/volume)Ordered By: Karen Wall on 08-24-2023 Urea nitrogen [Mass/Vol] 8 mg/dL 7-18 [facility] Wagner antibody assayOrdered By: Karen Wall on 08-24-2023 Wagner extractable nuclear Ab (S) [Titer] Not Reportable [facility] Thin prep Papanicolaou smear with manual screeningOrdered By: Karen Wall on 08-24-2023 Thin prep Papanicolaou smear with manual screening 5 5-15 [facility] Internal Medicine Office Vis itotoribio 08-23-2023 Internal Medicine Office Visit [facility] [address] [place] [address] [place] [address] OFFICE VISIT Date of Service: 08/24/23 MR#: [id number] Acct: [id number] Name: NAVEED DAUGHERTY Rep #: [id number] : 1995 Provider: Dr. Karen florence MD Age/Sex: 28/F Location: [facility] [place] Status: Signed Intake Vital Signs 02/21/23 08:30 [...] Reasons: 6 M FU Chief Complaint: Annual [employer] Director Required: No Is patient in pain?: No Allergies No Known Allergies Allergy (Unverified 08/24/23 08:24) Medications norgestimate-ethinyl estradiol 0.18 mg/0.215mg/0.25mg-35 mcg(28)tablet (Tri-Estarylla) 1 tab PO DAILY #84 tabs 06/27/23 [Rx Confirmed 08/24/23] escitalopram oxalate 5 mg tablet (Lexapro) 5 mg PO DAILY #90 tabs 08/24/23 [Rx Confirmed 08/24/23] Nurse's Note: Needs refill on lexapro. 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 Normal [facility] Absolute lymphocyte countOrd ered By: Dr. Wall on 01-10-2023 Lymphocytes Auto (Unsp spec) [#/Vol] 2.09 10*3/uL 0.83-4.51 [facility] Basophil percentageOrdered B y: Dr. Wall on 01-10-2023 Basophils/100 WBC (Bld) 1.2 % 0-1 [facility] Bilirubin [Mass/Vol] 0.20 mg/dL 0.20-1.00 [facility] Comment on above: For patients on eltr ombopag therapy, use of Dimension Bristow TBIL is not recommended. Chloride [Moles/Vol] 109 mmol/L 98-107 [facility] Eosinophils/100 WBC (Bld) 6.2 % 0-5 [facility] Glucose [Mass/Vol] 86 mg/dL 74-106 [facility] Neutrophils (Bld) [#/Vol] 2.4 10*3/uL 2.0-7.7 [facility] Neutrophils/100 WBC (Bld) 45.7 % 47-70 [facility] Potassium [Moles/Vol] 4.0 mmol/L 3.5-5.1 [facility] Protein [Mass/Vol] 7.7 g/dL 6.4-8.2 [facility] Sodium [Moles/Vol] 138 mmol/L 136-145 [facility] WBC (Bld) [#/Vol] 5.2 10*3/uL 4.4-11.0 [facility] Blood erythrocytes count (nu mber/volume)Ordered By: Dr. Wall on 01-10-2023 RBC (Bld) [#/Vol] 3.92 10*6/uL 4.2-5.4 [facility] Blood hemoglobin measurement (mass/volume)Ordered By: Dr. Wall on 01-10-2023 Hemoglobin (Bld) [Mass/Vol] 12.4 g/dL 12.0-15.0 [facility] Blood lymphocytes/100 leukoc ytesOrdered By: Dr. Wall on 01-10-2023 Lymphocytes/100 WBC (Bld) 40.2 % 19-41 [facility] Blood monocytes/100 leukocyt esOrdered By: Dr. Wall on 01-10-2023 Monocytes/100 WBC (Bld) 6.5 % 0-10 [facility] Blood platelet mean volumeOr dered By: Dr. Wall on 01-10-2023 Platelet mean volume (Bld) [Entitic vol] 9.8 fL 6.2-12.0 [facility] Determination of erythrocyte mean corpuscular volume (MCV)Ordered By: Dr. Wall on 01-10-2023 MCV (RBC) [Entitic vol] 95.4 fL 81-99 [facility] Hematocrit Auto (Bld) [Volum e fraction]Ordered By: Dr. Wall on 01-10-2023 Hematocrit (Bld) [Volume fraction] 37.4 % 37-47 [facility] - Chemistry and C hemistry - challengeOrdered By: Dr. Wall on 01-10-2023 ALP [Catalytic activity/Vol] 66 U/L 45-117 [facility] ALT [Catalytic activity/Vol] 18 U/L 13-56 [facility] CO2 [Moles/Vol] 25.0 mmol/L 21.0-32.0 [facility] Globulin (S) [Mass/Vol] 3.9 g/dL 2.2-4.2 [facility] Urea nitrogen/Creatinine [Mass ratio] 13.4 mg/mg 10-20 [facility] - Hematology and Cell countsOrdered By: Dr. Wall on 01-10-2023 Erythrocyte distribution width (RBC) [Entitic vol] 44.3 fL 35.1-43.9 [facility] Erythrocyte distribution width (RBC) [Ratio] 12.7 % 11.6-14.6 [facility] Immature granulocytes/100 WBC (Bld) 0.200 % 0.0-0.9 [facility] Comment on above: IG% - Immature Granu locytes (promyelocytes, myelocytes and metamyelocytes) > 1% indicates that a LEFT SHIFT is Present. MCH (RBC) [Entitic mass] 31.6 pg 27.0-32.0 [facility] Nucleated RBC/100 WBC (Bld) [Ratio] 0 % 0-5 [facility] MCHC Auto (RBC) [Mass/Vol]Or dered By: Dr. Wall on 01-10-2023 MCHC (RBC) [Mass/Vol] 33.2 g/dL 32-36 [facility] No Panel InformationOrdered By: Dr. Wall on 01-10-2023 Estimated GFR (MDRD) Amer 132 mL/min >60 [facility] Comment on above: GFR Calc Estimated GFR (MDRD) Non-Af Amer 109 mL/min >60 [facility] Comment on above: Non- GFR Calc Thyroid Stimulating Hormone (TSH) 1.53 uIU/mL 0.358-3.74 [facility] Vitamin D 25-Hydroxy 23.2 ng/mL [facility] Comment on above: Vitamin D 25(OH) Sta tus Range Deficiency <20 ng/mL (50nmol/L) Insufficiency 20 - 30 ng/mL (50 - 75 nmol/L) Sufficiency 30 - 100 ng/mL (75 - 250 nmol/L) Toxicity >100 ng/mL (>250 nmol/L) Platelets bldOrdered By: Dr. Wall on 01-10-2023 Platelets (Bld) [#/Vol] 301 10*3/uL 150-450 [facility] Serum or plasma albumin noel urement (mass/volume)Ordered By: Dr. Wall on 01-10-2023 Albumin [Mass/Vol] 3.8 g/dL 3.2-5.0 [facility] Serum or plasma albumin/glob ulin mass ratioOrdered By: Dr. Wall on 01-10-2023 Albumin/Globulin [Mass ratio] 1.0 {ratio} 0.9-2.4 [facility] Serum or plasma calcium noel urement (mass/volume)Ordered By: Dr. Wall on 01-10-2023 Calcium [Mass/Vol] 9.1 mg/dL 8.5-10.1 [facility] Serum or plasma creatinine m easurement (mass/volume)Ordered By: Dr. Wall on 01-10-2023 Creatinine [Mass/Vol] 0.67 mg/dL 0.55-1.02 [facility] Comment on above: The validity of the calculated GFR & GFRAA in patients over 70 years has not been determined. Clinical correlation is essential. Serum or plasma urea nitroge n measurement (mass/volume)Ordered By: Dr. Wall on 01-10-2023 Urea nitrogen [Mass/Vol] 9 mg/dL 7-18 [facility] Thin prep Papanicolaou smear with manual screeningOrdered By: Dr. Wall on 01-10-2023 Thin prep Papanicolaou smear with manual screening 11 U/L 15-37 [facility] Thin prep Papanicolaou smear with manual screening 4 5-15 [facility] CNCOon 01-22-2022 CNCO Letter Text Normal [facility] C. trachomatis+N. gonorrhoea e DNA ESTEBAN+probe Ql (Unsp spec)on 01-14-2022 C. trachomatis DNA ESTEBAN+probe Ql (Unsp spec) Negative Normal Negative for Chlamydia trachomatis by amplificaton [facility] Comment on above: Order Comment: Speci men Type: SWAB Ordering Facility: [facility] [place] Address: [address] [place] [address] Performed By: #### 3 6902-5 #### [facility] CLIA [id number] [address] [place] [address] [place] N. gonorrhoeae DNA ESTEBAN+probe Ql (Unsp spec) Negative Normal Negative for Neisseria gonorrhoeae by amplification [facility] Comment on above: Order Comment: Speci men Type: SWAB Ordering Facility: [facility] [place] Address: [address] [place] [phone] Performed By: #### 3 6902-5 #### [facility] TAWNYAIA [id number] [address] [place] [address] [place] [address] [place] CNOVon 01-14-2022 CNOV Office Visit (OBGYWM) ARABELLABRITTNINAVEED GOMEZ ([id number]) 1995 F Date Time Provider Department 01/14/22 8:30 AM JOY MUNOZ OBGYWMarco During your visit today, we recorded the following information about you: Blood pressure Weight Height Last Period 102/64 59.1 kg 1.638 m 01/06/22 Joy Munoz APRN.PHYSICIAN AIDE 01/14/2022 9:44 AM Signed Naveed is a 26 year old who presents for an annual gynecologic exam without complaints. 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 -Genetic counseling ordered today. Pat Hyman. DIGITAL IMAGING SPECIALIST student TEACHING PROVIDER (Physician/PA/SATELLITE TV INSTALLER) NOTE OF PERSONAL INVOLVEMENT IN CARE: I have personally seen and examined the patient and performed the medical decision-making components. I have reviewed the Advanced Practice Registered Nurse (SATELLITE TV INSTALLER) Student's documentation and verified the findings in the note as written. Any additions or changes are noted in bold/italics. Signature: Joy Munoz Date: 01/14/2022 Time: 9:43 AM Referring Provider: BRENNA GALLO [[id number]] Allergies As of Date: 01/14/2022 (No Known Allergies) Date Reviewed: 01/14/2022 Reviewed by: Joy Munoz APRN.PHYSICIAN AIDE - Fully Assessed Reason for Visit: Yearly Exam [187] Primary Visit Diagnosis:Encounter for gynecological examination (general) (routine) without abnormal findings [Z01.419] Other Visit Diagnoses:Well woman exam with routine gynecological exam [Z01.419] Screening for cervical cancer [Z12.4] Encounter for screening for human papillomavirus (HPV) [Z11. (more content not included)... Normal [facility] HPV W/GENOTYPE THIN PREPon 0 01-14-2022 HPV 16 Ag Ql (Unsp spec) Negative Normal Negative for HPV DNA high risk type 16 by PCR [facility] Comment on above: Order Comment: Speci men Type: FLUID SAMPLE Ordering Facility: [facility] [place] Address: [address] [place] [address] Performed By: #### H PVHRT #### [facility] CLIA [id number] [address] [place] [address] [place] HPV 18 Ag Ql (Unsp spec) Negative Normal Negative for HPV DNA high risk type 18 by PCR [facility] Comment on above: Order Comment: Speci men Type: FLUID SAMPLE Ordering Facility: [facility] [place] Address: [address] [place] [address] Performed By: #### H PVHRT #### [facility] CLIA [id number] [address] [place] [address] [place] HPV 31+33+35+39+45+51+52+5 6+58+59+66+68 DNA ESTEBAN+probe Ql (Cvx) Negative for HPV DNA high risk types: 31,33,35,39,45,51,52 ,56,58,59,66,68 by PCR. Normal Negative for HPV DNA high risk types: 31,33,35,39,45,5 1,52,56,58,59,66 ,68 by PCR. [facility] Comment on above: Order Comment: Speci men Type: FLUID SAMPLE Ordering Facility: [facility] [place] Address: [address] [place] [address] Performed By: #### H PVHRT #### [facility] CLIA [id number] [address] [place] [address] [place] PAP FLUID CERVICAL SCREENING on 01-14-2022 CASE REPORT Normal [facility] Comment on above: Order Comment: Speci men Type: FLUID SAMPLE Ordering Facility: [facility] [place] Address: [address] [place] [address] Result Comment: Gyne cologic Cytology Report Case: [id number] Authorizing Provider: Joy Munoz APRN.PHYSICIAN AIDE Collected: 01/14/2022 09:15 AM Ordering Location: OB/Gynecology Received: 01/14/2022 01:12 PM First Screen: WERNER Alvares, ASCP Pathologist: Jacquie Fan MD Specimen: PAP FULL TIME PARAMEDIC SCREENING, CERVICAL SCREENING FLUID Performed By: #### L [id number] #### [facility] CLIA [id number] [address] [place] [address] [place] [facility] CLIA [id number] [address] [place] [address] [place] CLINICAL HISTORY ROUTINE EXAM Normal [facility] Comment on above: Order Comment: Speci men Type: FLUID SAMPLE Ordering Facility: [facility] [place] Address: [address] [place] [address] Performed By: #### L [id number] #### [facility] CLIA [id number] [address] [place] [address] LAB CLIA [id number] [address] [place] [address] OF [place] CYTOLOGY INTERPRETATION PAP Abnormal [facility] Comment on above: Order Comment: Speci men Type: FLUID SAMPLE Ordering Facility: [facility] [place] Address: [address] [place] [address] Result Comment: Epit helial cell abnormality. Atypical squamous cells of undetermined significance (ASC-US) Performed By: #### L [id number] #### [facility] CLIA [id number] [address] [place] [address] [place] [facility] CLIA [id number] [address] [place] [address] [place] CYTOLOGY PAP OTHER INT Predominance of coccobacilli consistent with shift in vaginal chelsey Normal [facility] Comment on above: Order Comment: Speci men Type: FLUID SAMPLE Ordering Facility: [facility] [place] Address: [address] [place] [address] Performed By: #### L [id number] #### [facility] CLIA [id number] [address] [place] [address] [place] [facility] CLIA [id number] [address] [place] [address] [place] FINAL DIAGNOSIS Normal [facility] Comment on above: Order Comment: Speci men Type: FLUID SAMPLE Ordering Facility: [facility] [place] Address: [address] [place] [address] Result Comment: A - CERVICAL SCREENING FLUID Satisfactory for interpretation, No endocervical component Epithelial cell abnormality. Atypical squamous cells of undetermined significance (ASC-US) Predominance of coccobacilli consistent with shift in vaginal chelsey Performed By: #### L [id number] #### [facility] CLIA [id number] [address] [place], [place] [address] [place] [facility] CLIA [id number] [address] [place] [address] [place] FINAL PERFORMING LAB Normal [facility] Comment on above: Order Comment: Speci men Type: FLUID SAMPLE Ordering Facility: [facility] [place] Address: [address] [place] [address] Result Comment: Tech nical component, energy projects lead screening performed at [facility], [address] [facility], [place] [address] CLIA# [id number] Diagnostic interpretation performed at [facility], [address] [place] [address] CLIA# [id number] Wood Finisher: Jacquie Fan M.D. Performed By: #### L [id number] #### [facility] CLIA [id number] [address] [place] [address] [place] [facility] CLIA [id number] [address] [place] [address] [place] HPV REQUESTED? Yes, Reflex HPV for ASCUS Normal [facility] Comment on above: Order Comment: Speci men Type: FLUID SAMPLE Ordering Facility: [facility] [place] Address: [address] [place] [address] Performed By: #### L [id number] #### [facility] CLIA [id number] [address] [place] [address] [place] [facility] CLIA [id number] [address] [place] [address] [place] LMP 01/06/2022 Normal [facility] Comment on above: Order Comment: Speci men Type: FLUID SAMPLE Ordering Facility: [facility] [place] Address: [address] [place], [place] [address] Performed By: #### L [id number] #### [facility] CLIA [id number] [address] [place] [address] [place] [facility] CLIA [id number] [address] [place] [address] [place] PAP DISCLAIMER COMMENT The Pap Smear is a screening test for cervical cancer. False negative results occur with all screening tests, emphasizing the need for rescreening at recommended intervals, and clinical correlation. Normal [facility] Comment on above: Order Comment: Speci men Type: FLUID SAMPLE Ordering Facility: [facility] [place] Address: [address] [place] [address] Performed By: #### L [id number] #### [facility] CLIA [id number] [address] [place] [address] [place] [facility] CLIA [id number] [address] [place] [address] [place] PAP FULL TIME PARAMEDIC COMMENT This specimen has been analyzed by the ThinPrep Imaging System, an automated imaging and review system, which assists the laboratory in evaluating cells on ThinPrep Pap tests. Following automated imaging, selected manrique from every slide are reviewed by a energy projects lead. Normal [facility] Comment on above: Order Comment: Speci men Type: FLUID SAMPLE Ordering Facility: [facility] [place] Address: [address] [place] [address] Performed By: #### L [id number] #### [facility] CLIA [id number] [address] [place] [address] [place] [facility] CLIA [id number] [address] [place] [address] [place] Basic metabolic 2000 panelon 12-31-2021 Anion gap [Moles/Vol] 10 mmol/L Normal 9-18 [facility] Comment on above: Order Comment: Speci men Type: BLOOD SPECIMEN Ordering Facility: [facility] [place] Address: [address] [place], [place] [address] Performed By: #### L IPNF, 76711-3 #### [facility] CLIA [id number] [address] [place] [address] [place] Calcium [Mass/Vol] 9.4 mg/dL Normal 8.5-10.2 [facility] Comment on above: Order Comment: Speci men Type: BLOOD SPECIMEN Ordering Facility: [facility] [place] Address: [address] [place] [address] Performed By: #### L IPJAGJIT, 91725-3 #### [facility] CLIA [id number] [address] [place] [address] [place] Chloride [Moles/Vol] 103 mmol/L Normal 97-105 [facility] Comment on above: Order Comment: Speci men Type: BLOOD SPECIMEN Ordering Facility: [facility] [place] Address: [address] [place], [place] [address] Performed By: #### L IPJAGJIT, 92149-3 #### [facility] CLIA [id number] [address] [place] [address] [place] CO2 [Moles/Vol] 24 mmol/L Normal 22-30 [facility] Comment on above: Order Comment: Speci men Type: BLOOD SPECIMEN Ordering Facility: [facility] [place] Address: [address] [place], [place] [address] Performed By: #### L IPNF, 27410-4 #### [facility] CLIA [id number] [address] [place] [address] [place] Creatinine [Mass/Vol] 0.66 mg/dL Normal 0.58-0.96 [facility] Comment on above: Order Comment: Speci men Type: BLOOD SPECIMEN Ordering Facility: [facility] [place] Address: [address] [place] [address] Performed By: #### L IPNF, 18274-5 #### [facility] CLIA [id number] [address] [place] [address] [place] ESTIMATED GLOMERULAR FILTRATION RATE 123 mL/min/1.73m??? Normal >=60 [facility] Comment on above: Order Comment: Speci men Type: BLOOD SPECIMEN Ordering Facility: [facility] [place] Address: [address] [place] [address] Result Comment: Mariah mated Glomerular Filtration Rate [...] actual GFR. Performed By: #### L MON[place]NA, 59665-9 #### [facility] CLIA [id number] [address] [place] [address] [place] Glucose [Mass/Vol] 75 mg/dL Normal 74-99 [facility] Comment on above: Order Comment: Viri ash Type: BLOOD SPECIMEN Ordering Facility: [facility] [place] Address: [address] [place] [address] Result Comment: The [place] Diabetes Association (ADA) provides guidance for cutoff [...] Standards of Medical Care in Diabetes 2016, [place] Diabetes Association. Diabetes Care. 2016.39(Suppl 1). Performed By: #### L MON[place]NA, 74320-5 #### [facility] CLIA [id number] [address] [place] [address] [place] Potassium [Moles/Vol] 4.5 mmol/L Normal 3.7-5.1 [facility] Comment on above: Order Comment: Viri ash Type: BLOOD SPECIMEN Ordering Facility: [facility] [place] Address: [address] [place] [address] Performed By: #### L MON[place]NA, 95284-0 #### [facility] CLIA [id number] [address] [place] [address] [place] Sodium [Moles/Vol] 137 mmol/L Normal 136-144 [facility] Comment on above: Order Comment: Speci men Type: BLOOD SPECIMEN Ordering Facility: [facility] [place] Address: [address] [place] [address] Performed By: #### L MON[place]NA, 17208-1 #### [facility] CLIA [id number] [address] [place] [address] [place] Urea nitrogen [Mass/Vol] 9 mg/dL Normal 7-21 [facility] Comment on above: Order Comment: Speci men Type: BLOOD SPECIMEN Ordering Facility: [facility] [place] Address: [address] [place] [address] Performed By: #### L IPJAGJIT, 68932-0 #### [facility] CLIA [id number] [address] [place] [address] [place] CNOVon 12-31-2021 CNOV Office Visit (INTMWS) NAVEED DAUGHETRY ([id number]) 1995 F Date Time Provider Department 12/31/21 8:00 AM BRENNA GALLO INTMWS During your visit today, we recorded the following information about you: Pulse Respiration Blood pressure Weight 68/minute 16/minute 120/82 57.2 kg Height 1.651 m Brenna Gallo APRN.OUTPATIENT CASE MANAGER 12/31/2021 9:03 AM Signed SUBJECTIVE: COVID-19 VACCINE(1) Never done HEPATITIS C SCREENING Never done HIV SCREENING Never done DTAP,TDAP,TD(1 - Tdap) Never done PAP TESTING Never done [facility] Naveed Daugherty is a 26 year old female. Has been seen at [facility] only, no other visits. Presents today to establish care at [facility]. Previous PCP:[facility] Last seen: 15 yrs ago [facility]: about 5 to 10 years ago Labwork: no recent ER/Hospitalization: no Outside records: no No SOCIAL WORKER CLINICAL [facility]. Going to [place] grief counselor. Mom passed in June. She [...] ICD9: V72.31, ICD10: Z01.419 - CONSULT TO SOCIAL WORKER CLINICAL 6. Encounter for screening for diabetes mellitus - ICD9: V77.1, ICD10: Z13.1 - BASIC METABOLIC PNL 7. Screening for lipid disorders - ICD9: V77.91, ICD10: Z13.220 - LIPID PANEL, NONFASTING 8. Skin lesion - ICD9: 709.9, ICD10: L98.9 - CONSULT TO DERMATOLOGY Labs today. 1 year follow-up with PCP. Brenna Gallo APRN.OUTPATIENT CASE MANAGER Referring Provider: SELF [200] Allergies As of [...] [L98.9] Order(s):HEP C AB IA W/CONF SCRN [AKRQRU1H] Order #: [id number] FUTURE HIV 1 2 COMBO(AG/AB),WITH REFLEX TO DIFFERENTIATION [SQHIV12] Order #: [id number] FUTURE CONSULT TO SOCIAL WORKER CLINICAL [9021] Order #: [id number]: 1 FUTURE BASIC METABOLIC PNL [SQBMP] Order #: [id number] FUTURE LIPID PANEL, NONFASTING [SQLIPNF] Order #: [id number] FUTURE CONSULT TO DERMATOLOGY [9005] Order #: [id number]: 1 FUTURE Prescriptions as of 12/31/2021 - Norgestimate-Ethinyl Estradiol (TRI-ESTARYLLA) 0.18/0.215/ (more content not included)... Normal [facility] HCV Ab Ser Qlon 12-31-2021 HCV Ab Ql (S) Negative Normal Negative [facility] Comment on above: Order Comment: Speci men Type: BLOOD SPECIMEN Ordering Facility: [facility] [place] Address: [address] [place] [address] Result Comment: The result suggests no evidence of active infection with Hepatitis C virus. Should recent infection be suspected, repeat testing may be considered 4-6 weeks after this draw. Performed By: #### 1 6128-1 #### [facility] CLIA [id number] [address] [place] [address] [place] HIV 1+2 Ab IA Qlon 2 HIV 1 and 2 Ab IA.rapid Nom Normal [facility] Comment on above: Order Comment: Viri ash Type: BLOOD SPECIMEN Ordering Facility: [facility] [place] Address: [address] [place] [address] Result Comment: Test not indicated. Performed By: #### 3 1201-7 #### [facility] CLIA [id number] [address] [place] [address] [place] HIV 1+2 Ab+HIV1 p24 Ag IA Ql Non-Reactive Normal Nonreactive [facility] Comment on above: Order Comment: Arcenioi men Type: BLOOD SPECIMEN Ordering Facility: [facility] [place] Address: [address] [place] [address] Performed By: #### 3 1201-7 #### [facility] CLIA [id number] [address] [place] [address] [place] HIVINT Normal [facility] Comment on above: Order Comment: Speci men Type: BLOOD SPECIMEN Ordering Facility: [facility] [place] Address: [address] [place], [place] [address] Result Comment: No e vidence of HIV-1 or HIV-2 infection. Should recent infection be suspected, repeat testing may be considered 2-3 weeks after this draw. [place] Rev. Code 3701.243(E): This information has been [...] diagnoses. Performed By: #### 3 1201-7 #### [facility] CLIA [id number] [address] [place] [address] [place] LIPID PANEL, NONFASTINGon Cholesterol [Mass/Vol] 184 mg/dL Normal <200 [facility] Comment on above: Order Comment: Speci men Type: BLOOD SPECIMEN Ordering Facility: [facility] [place] Address: [address] [place] [address] Result Comment: <200 mg/dL, Desirable 200-239 mg/dL, Borderline high >239 mg/dL, High Performed By: #### L IPNF, 09495-6 #### [facility] CLIA [id number] [address] [place] [address] [place] HDL CHOLESTEROL, NF 70 mg/dL Normal >39 [facility] Comment on above: Order Comment: Speci men Type: BLOOD SPECIMEN Ordering Facility: [facility] [place] Address: [address] [place], [place] [address] Result Comment: 40-5 9 mg/dL, Acceptable >59 mg/dL, High: Negative risk factor for coronary heart disease <40 mg/dL, Low: Positive risk factor for coronary heart disease Performed By: #### L IPNF, 53017-4 #### [facility] CLIA [id number] [address] [place] [address] LDL CHOLESTEROL, NF 104 mg/dL High <100 [facility] Comment on above: Order Comment: Viri ash Type: BLOOD SPECIMEN Ordering Facility: [facility] [place] Address: [address] [place] [address] Result Comment: <100 mg/dL, Optimal 100-129 mg/dL, Near optimal/above optimal 130-159 mg/dL, Borderline high 160-189 mg/dL, High >189 mg/dL, Very high Secondary prevention optimal LDL Cholesterol levels are recommended to be < 70 mg/dL Performed By: #### L [place], 41744-5 #### [facility] CLIA [id number] [address] [place] [address] LDL/HDL RATIO, NF 1.49 mg/dL Normal <2.54 [facility] Comment on above: Order Comment: Viri ash Type: BLOOD SPECIMEN Ordering Facility: [facility] [place] Address: [address] [place] [address] Result Comment: Refroseanna wynn: 1. National Cholesterol Education Program ATP III Guideline At-A-Glance Quick Desk Reference: National Heart, Lung, and Blood [place]. National Institutes of Health. 2001: NIH Publication No. 01-3305. 2. An International Atherosclerosis Society position paper: global recommendations for the management of dyslipidemia: executive summary, Atherosclerosis. 2014: 232(2):410-413. Performed By: #### L [place], 71448-1 #### [facility] CLIA [id number] [address] [place] [address] NON HDL CHOL, NF 114 mg/dL Normal <130 [facility] Comment on above: Order Comment: Viri ash Type: BLOOD SPECIMEN Ordering Facility: [facility] [place] Address: [address] [place] [address] Result Comment: <130 mg/dL, Optimal 130-159 mg/dL, Near optimal/above optimal 160-189 mg/dL, Borderline high 190-219 mg/dL, High >219 mg/dL, Very high Secondary prevention optimal non HDL Cholesterol levels are recommended to be <100 mg/dL Performed By: #### L IPNF, 96648-3 #### [facility] CLIA [id number] [address] [place] [address] [place] OF [place] T CHOL/HDL RATIO NF 2.63 mg/dL Normal <5.10 [facility] Comment on above: Order Comment: Speci men Type: BLOOD SPECIMEN Ordering Facility: [facility] Address: [address] [place] [address] Performed By: #### L IPNF, 67931-2 #### [facility] CLIA [id number] [address] [place] [address] [place] TRIGLYCERIDES, NF 49 mg/dL Normal <150 [facility] Comment on above: Order Comment: Speci men Type: BLOOD SPECIMEN Ordering Facility: [facility] Address: [address] [place] [address] Result Comment: <150 mg/dL, Normal 150-199 mg/dL, Borderline high 200-499 mg/dL, High >499 mg/dL, Very high Performed By: #### L IPNF, 94639-6 #### [facility] CLIA [id number] [address] [place] [address] STATES [place] [facility] VLDL CHOLESTEROL, NF 10 mg/dL Normal <30 [facility] Comment on above: Order Comment: Speci men Type: BLOOD SPECIMEN Ordering Facility: [facility] [place] Address: [address] [place] [address] Performed By: #### L IPNF, 74568-8 #### [facility] CLIA [id number] [address] [place] [address] [place] Vital Signs Date Time Vital Sign Value Performing Clinician Luis romero 02-20-2025 08:10-0400 Body height 162.[address] Karen Wall MD Work Phone: [facility] 02-20-2025 08:10-0400 Body mass index (BMI) [Ratio] 25.2 kg/m2 Dr. Karen Wall MD Work Phone: [facility] 02-20-2025 08:10-0400 Body temperature 98.6 [degF] Dr. Karen Wall MD Work Phone: [facility] 02-20-2025 08:10-0400 Body weight 66.[address] Karen Wall MD Work Phone: [facility] 02-20-2025 08:10-0400 Diastolic blood pressure 70 mm[Hg] Dr. Karen Wall MD Work Phone: [facility] 02-20-2025 08:10-0400 Heart rate 86 /min Dr. Karen Wall MD Work Phone: [facility] 02-20-2025 08:10-0400 Respiratory rate 16 /min Dr. Karen Wall MD Work Phone: [facility] 02-20-2025 08:10-0400 SaO2% (BldA) [Mass fraction] 99 % Dr. Karen Wall MD Work Phone: [facility] 02-20-2025 08:10-0400 Systolic blood pressure 110 mm[Hg] Dr. Karen Wall MD Work Phone: [facility] 08-24-2023 08:29-0500 Body height 162.56 cm No Primary Care Physician [facility] 08-24-2023 08:29-0500 Body mass index (BMI) [Ratio] 24.9 kg/m2 No Primary Care Physician [facility] 08-24-2023 08:29-0500 Body temperature 98.2 [degF] No Primary Care Physician [facility] 08-24-2023 08:29-0500 Body weight 65.77 kg No Primary Care Physician [facility] 08-24-2023 08:29-0500 Diastolic blood pressure 76 mm[Hg] No Primary Care Physician [facility] 08-24-2023 08:29-0500 Heart rate 70 /min No Primary Care Physician [facility] 08-24-2023 08:29-0500 Respiratory rate 14 /min No Primary Care Physician [facility] 08-24-2023 08:29-0500 SaO2% (BldA) [Mass fraction] 98 % No Primary Care Physician [facility] 08-24-2023 08:29-0500 Systolic blood pressure 108 mm[Hg] No Primary Care Physician [facility] 06-27-2023 09:55-0500 Body mass index (BMI) [Ratio] 24.9 kg/m2 No Primary Care Physician [facility] 06-27-2023 09:55-0500 Body weight 65.82 kg No Primary Care Physician [facility] 06-27-2023 09:55-0500 Diastolic blood pressure 72 mm[Hg] No Primary Care Physician [facility] 06-27-2023 09:55-0500 Systolic blood pressure 118 mm[Hg] No Primary Care Physician [facility] 01-10-2023 15:04-0400 Body height 162.56 cm No Primary Care Physician [facility] 01-10-2023 15:04-0400 Body mass index (BMI) [Ratio] 23.3 kg/m2 No Primary Care Physician [facility] 01-10-2023 15:04-0400 Body temperature 96.8 [degF] No Primary Care Physician [facility] 01-10-2023 15:04-0400 Body weight 61.68 kg No Primary Care Physician [facility] 01-10-2023 15:04-0400 Diastolic blood pressure 82 mm[Hg] No Primary Care Physician [facility] 01-10-2023 15:04-0400 Heart rate 83 /min No Primary Care Physician [facility] 01-10-2023 15:04-0400 Respiratory rate 16 /min No Primary Care Physician [facility] 01-10-2023 15:04-0400 SaO2% (BldA) [Mass fraction] 99 % No Primary Care Physician [facility] 01-10-2023 15:04-0400 Systolic blood pressure 138 mm[Hg] No Primary Care Physician [facility] 12-31-2021 07:59-0400 Body height 165.1 cm Rbenna Gallo SATELLITE TV INSTALLER.OUTPATIENT CASE MANAGER Work Phone: [facility] 12-31-2021 07:59-0400 Body weight 57.15 kg Brenna Gallo SATELLITE TV INSTALLER.OUTPATIENT CASE MANAGER Work Phone: [facility] 12-31-2021 07:59-0400 Diastolic blood pressure 82 mm[Hg] Brenna Gallo SATELLITE TV INSTALLER.OUTPATIENT CASE MANAGER Work Phone: [facility] 12-31-2021 07:59-0400 Heart rate 68 /min Brenna Gallo SATELLITE TV INSTALLER.OUTPATIENT CASE MANAGER Work Phone: [facility] 12-31-2021 07:59-0400 Respiratory rate 16 /min Brenna Gallo SATELLITE TV INSTALLER.OUTPATIENT CASE MANAGER Work Phone: [facility] 12-31-2021 07:59-0400 SaO2% (BldA) [Mass fraction] 100 % Brenna Gallo SATELLITE TV INSTALLER.OUTPATIENT CASE MANAGER Work Phone: [facility] 12-31-2021 07:59-0400 Systolic blood pressure 120 mm[Hg] Brenna Gallo SATELLITE TV INSTALLER.OUTPATIENT CASE MANAGER Work Phone: [facility] Encounters Encounter Date Encounter Type Care Provider Facility Start: 02-20-2025 End: 02-20-[address] Karen Wall MD Work Phone: -[facility] Start: 02-20-2025 End: 02-20-[address] Karen Wall MD -[facility] Work Phone: Start: 07-03-2024 End: 07-03-2024 ambulatory Karen Wall Facility:[facility] Start: 02-20-2024 End: 02-20-2024 ambulatory Karen Wall Facility:[facility] Start: 02-20-2024 End: 02-20-2024 ambulatory Karen Wall Facility:[facility] Start: 08-24-2023 End: 08-24-2023 Patient encounter procedure No Primary Care Physician [facility] Work Phone: Start: 08-24-2023 End: 08-24-2023 ambulatory No Primary Care Physician [facility] Work Phone: Start: 08-24-2023 End: 08-24-2023 ambulatory Karen [place] Facility:[facility] Start: 06-27-2023 End: 06-27-2023 Patient encounter procedure No Primary Care Physician [facility] Work Phone: Start: 01-10-2023 End: 01-10-2023 ambulatory No Primary Care Physician [facility] Work Phone: Start: 01-10-2023 End: 01-10-2023 Patient encounter procedure No Primary Care Physician [facility] Start: 01-10-2023 End: 01-10-2023 Patient encounter procedure No Primary Care Physician [facility] Start: 12-31-2021 End: 12-31-2021 Patient encounter procedure Brenna Gallo APRN.OUTPATIENT CASE MANAGER Work Phone: [facility] [place] Comment on above: Routine medical exam (Primary Dx); Encounter for immunization; Special screening examination for viral disease; Screening for HIV (human immunodeficiency virus); Well woman exam with routine gynecological exam; Encounter for screening for diabetes mellitus; Screening for lipid disorders; Skin lesion Start: 12-31-2021 End: 12-31-2021 Patient encounter status Brenna Gallo APRN.OUTPATIENT CASE MANAGER Work Phone: [facility] [place] Procedures Date Procedure Procedure Detail Performing Clinician Start: 12-31-2021 Adult depression screening assessment Brenna Gallo APRN.OUTPATIENT CASE MANAGER Work Phone: Plan of Treatment Date Care Activity Detail Author Start: 08-24-2023 Patient referral [facility] Work Phone: Start: 01-10-2023 Patient referral [facility] Work Phone: Start: 12-31-2022 Adult depression screening assessment DEPRESSION SCREENING [facility] Start: 08-09-2022 COVID-19 VACCINE (#1) COVID-19 VACCI NE (#1) [facility] Comment on above: Postponed from 04/24 (Postponed To Appropriate Date) Start: 04-08-2022 Influenza vaccination INFLUENZ A (Season Ended) [facility] Start: 12-31-2021 End: 03-02-2022 Basic metabolic 2000 panel - Serum or Plasma [facility] Work Phone: Comment on above: Expected: 12/31/2021 , Expires: 03/02/2022 Start: 12-31-2021 End: 03-02-2022 Hepatitis C virus Ab [Presence] in Serum [facility] Work Phone: Comment on above: Expected: 12/31/2021 , Expires: 03/02/2022 Start: 12-31-2021 End: 03-02-2022 HIV 1+2 Ab [Presence] in Serum or Plasma by Immunoassay [facility] Work Phone: Comment on above: Expected: 12/31/2021 , Expires: 03/02/2022 Start: 12-31-2021 End: 03-02-2022 LIPID PANEL, NONFASTING [facility] Work Phone: Comment on above: Expected: 12/31/2021 , Expires: 03/02/2022 Start: 2014 PAP TESTING PAP TESTING [facility] Start: 2012 Urine microalbumin profile DTAP,TDAP,TD (1 - Tdap) [facility] Start: 2011 HEPATITIS C SCREENING HEPATITIS C SC REENING [facility] Start: 2011 HIV SCREENING HIV SCREENING [facility] Patient referral [facility] Work Phone: XR Cervical spine 4 or 5 Views [facility] Immunizations Immunization Date Immunization Notes Care Provider Fa cili 05-26-2024 Covid (Spikevax) Dr. Karen Wall MD Work Phone: [facility] 05-26-2024 influenza, seasonal, injectable, preservative free Dr. Karen Wall MD Work Phone: [facility] 02-21-2023 tetanus toxoid, redu wilson diphtheria toxoid, and acellular pertussis vaccine, adsorbed No Primary Care Physician [facility] 05-21-2022 Covid Pfizer Bivalen t Booster No Primary Care Physician [facility] 05-09-2022 influenza, injectabl e, quadrivalent, preservative free No Primary Care Physician [facility] 05-09-2022 influenza, seasonal, injectable No Primary Care Physician [facility] 08-19-2021 Covid (Moderna) No Primary C are Physician [facility] 12-09-2020 Covid (Moderna) No Primary C are Physician [facility] 11-11-2020 Covid (Moderna) No Primary C are Physician [facility] 04-01-2011 meningococcal polysaccharide (groups A, C, Y and W-135) diphtheria toxoid conjugate vaccine (MCV4P) No Primary Care Physician [facility] 04-01-2011 tetanus toxoid, redu wilson diphtheria toxoid, and acellular pertussis vaccine, adsorbed No Primary Care Physician [facility] 02-24-2005 measles, mumps and rubella virus vaccine No Primary Care Physician [facility] Payers Date Payer Category Payer Self-pay 2023 Unknown [id number] 2018 Unknown [employer] PPO OOS [id number] 2018-Present [phone] [address] [place] [address] PPO [id number] Unknown [id number] Unknown [id number] Unknown [id number] Unknown [id number] Unknown [id number] Unknown [id number] Social History Date Type Detail Facility Start: 06-24-2014 End: 02-20-2025 Tobacco smoking status NHIS Never smoked tobacco [facility] Start: 06-24-2014 Tobacco use and exposure Smoke less tobacco non-user [facility] Start: 12-31-2021 Alcohol intake Current drinke r of alcohol (finding) [facility] Start: 12-31-2021 Alcohol intake [facility] Start: 12-24-2021 History SDOH Alcohol Frequency 3 [facility] Start: 12-24-2021 History SDOH Alcohol Std Drinks 2 [facility] Start: 12-24-2021 History SDOH Alcohol Binge 1 [facility] Start: 12-24-2021 History SDOH Social Connections Living 8 [facility] Start: 12-24-2021 History SDOH Stress 4 [facility] Start: 1995 Sex Assigned At Not on file C [facility] Start: 12-21-2021 End: 12-31-2021 Exposure to SARS-CoV-2 (event) Not sure [facility] Work Phone: Start: 01-10-2023 End: 08-23-2023 Tobacco smoking status NHIS Unknown if ever smoked [facility] Start: 1995 Sex Assigned At Female W [facility] Progress note 01-14-2022 Note Date & Type Note Facility 01-14-2022 Note HNO ID: [id number] Author: Joy Munoz APRN.PHYSICIAN AIDE Service: ? Author Type: Nurse Practitioner Type: Progress Notes Filed: 01/14/2022 9:44 AM Note Text: Naveed is a 26 year old who presents for an annual gynecologic exam without complaints. 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 -Genetic counseling ordered today. Pat Hyman. DIGITAL IMAGING SPECIALIST student TEACHING PROVIDER (Physician/PA/SATELLITE TV INSTALLER) NOTE OF PERSONAL INVOLVEMENT IN CARE: I have personally seen and examined the patient and performed the medical decision-making components. I have reviewed the Advanced Practice Registered Nurse (SATELLITE TV INSTALLER) Student's documentation and verified the findings in the note as written. Any additions or changes are noted in bold/italics. Signature: Joy Muircalf Date: 01/14/2022 Time: 9:43 AM [facility] Progress note 12-31-2021 Note Date & Type Note Facility 12-31-2021 Note HNO ID: [id number] Author: Brenna Gallo APRN.OUTPATIENT CASE MANAGER Service: ? Author Type: Nurse Specialist Type: Progress Notes Filed: 12/31/2021 9:03 AM Note Text: SUBJECTIVE: COVID-19 VACCINE(1) Never done HEPATITIS C SCREENING Never done HIV SCREENING Never done DTAP,TDAP,TD(1 - Tdap) Never done PAP TESTING Never done HPI Naveed Daugherty is a 26 year old female. Has been seen at [facility] only, no other visits. Presents today to establish care at [facility]. Previous PCP:[facility] Last seen: 15 yrs ago [facility]: about 5 to 10 years ago Labwork: no recent ER/Hospitalization: no Outside records: no No SOCIAL WORKER CLINICAL Was [facility]. Going to [place] grief counselor. Mom passed in June. She [...] ICD9: V72.31, ICD10: Z01.419 - CONSULT TO SOCIAL WORKER CLINICAL 6. Encounter for screening for diabetes mellitus - ICD9: V77.1, ICD10: Z13.1 - BASIC METABOLIC PNL 7. Screening for lipid disorders - ICD9: V77.91, ICD10: Z13.220 - LIPID PANEL, NONFASTING 8. Skin lesion - ICD9: 709.9, ICD10: L98.9 - CONSULT TO DERMATOLOGY Labs today. 1 year follow-up with PCP. Brenna Gallo APRN.[facility] History of Present illness Narrative 12-31-2021 Brenna Gallo APRN.[facility] - 12/31/2021 8:00 AM EDT Note Date & Type Note Facility 12-31-2021 History of Presen t illness Narrative SUBJECTIVE: COVID-19 VACCINE(1) Never done HEPATITIS C SCREENING Never done HIV SCREENING Never done DTAP,TDAP,TD(1 - Tdap) Never done PAP TESTING Never done HPI Naveed Daugherty is a 26 year old female. Has been seen at [facility] only, no other visits. Presents today to establish care at [facility]. Previous PCP:[facility] Last seen: 15 yrs ago [facility]: about 5 to 10 years ago Labwork: no recent ER/Hospitalization: no Outside records: no No SOCIAL WORKER CLINICAL Was going [facility]. Going to [place] grief counselor. Mom passed in June. She [...] ICD9: V72.31, ICD10: Z01.419 - CONSULT TO SOCIAL WORKER CLINICAL 6. Encounter for screening for diabetes mellitus - ICD9: V77.1, ICD10: Z13.1 - BASIC METABOLIC PNL 7. Screening for lipid disorders - ICD9: V77.91, ICD10: Z13.220 - LIPID PANEL, NONFASTING 8. Skin lesion - ICD9: 709.9, ICD10: L98.9 - CONSULT TO DERMATOLOGY Labs today. 1 year follow-up with PCP. Brenna Gallo APRN.CNS documented in this encounter [facility] Chief complaint+Reason for visit Narrative Note Date & Type Note Facility Chief complaint+Reason for visit Narrative Reason for Visit Oral contraceptive u se Immunization due Establishing care with new doctor, encounter for Moderate anxiety Chronic neck pain Moderately severe depression [facility] Work Phone: Evaluation note Note Date [...] and subcutaneous tissue documented in this encounter [facility] Evaluation note Note Date & Type Note Facility Evaluation note Diagnosis Onset Date Oral contraceptive use nonea ctive Immunization due noneactive Establishing care with new d octor, encounter for noneactive Moderate anxiety noneactive Chronic neck pain noneactive Moderately severe depression noneactive [facility] Work Phone: Evaluation note Note Date & Type Note Facility Evaluation note Diagnosis Onset Date Family history of breast cancer in mother acute Encounter for routine gyneco logical examination noneactive Vitamin D deficiency acute Oral contraceptive use nonea ctive Influenza vaccination declined noneactive Multiple joint pain noneacti ve Moderate anxiety noneactive Chronic neck pain noneactive Moderately severe depression noneactive [facility] Work Phone: Evaluation note Note Date & Type Note Facility Evaluation note Diagnosis Onset Date Resolution Vitamin D deficiency acute February 20, 2025 8:00am Arthralgia of multiple joints noneactive February 20, 2025 8:00am Moderate anxiety noneactive February 8:00am Chronic neck pain noneactive February 202024 8:00am Moderately severe depression noneactive February 20, 2025 8:00am [facility] Work Phone: Reason for referral (narrative) Note Date & Type Note Facility Reason for referral (narrative) No reason for referral information available [facility] Work Phone: Reason for Referral Specialty Diagnoses / Procedures Referred By Monica powers Referred To Contact Dermatology Diagnoses Skin lesion Procedures CONSULT TO DERMATOLOGY Brenna Gallo APRN.OUTPATIENT CASE MANAGER [address] [place] [address] Referral ID Status Reason Start Date Expiration Date Visits Requested Visits Authorized [id number] Ref Not Required PCP Requested Referral 12/31/2021 12/31/2022 1 1 Specialty Diagnoses / Procedures Referred By Monica t Referred To Contact Diagnoses Well woman exam with routine gynecological exam Procedures CONSULT TO SOCIAL WORKER CLINICAL OFFICE/OUTPATIENT [facility] HIGH MDM 60-74 MINUTES Brenna Gallo, SATELLITE TV INSTALLER.OUTPATIENT CASE MANAGER [address] [place] [address] Referral ID Status Reason Start Date Expiration Date Visits Requested Visits Authorized [id number] Authorized PCP Requested Referral Auto-Generate d Referral [...] and Reason for Visit Chief Complaint Annual (POST FORM REMOVER) 6 M FU Reason for Visit Family [...] or prosecute any alcohol or drug abuse patient.[facility] Reason for Visit (unrecogniz ed section and content) Reason Comments Establish Care Care Teams (unrecognized sec tion and content) Aviation Tactical Readiness Officer Relationship Specialty Start Date End Date Shanice Rocha MD [address] [place] [address] PCP - General Internal Medicine 12/31/21 Team [...] Care Physician Referring Provider Active Parisa Babin SUPERVISING PRODUCER, SUPERVISING PRODUCER-C Attending Provider Active Team Status: Inactive Member [...] section and content) DATE CREATED AUTHOR 01/25/2022 [facility] DATE CREATED AUTHOR AUTHOR'S ORGANIZ ATION 07/05/2024 [facility] Goals (unrecognized section and content) Goals may [...] BE BASED ON THE PRIMARY CLINICAL RECORDS. [facility]. provides no warranty or guarantee of the accuracy or completeness of information in this document.
== END | disposition home or self-care (01) ==
PROVIDERS: PCP Internal Medicine; Referring Provider Internal Medicine; Visit Provider Internal Medicine
DX: E55.9 Vitamin D deficiency, unspecified (principal); R42 Dizziness and giddiness; M54.2 Cervicalgia; G89.29 Other chronic pain
CPT/HCPCS: 36415; 72050; 80053; 82306; 85025; 93005

== ENCOUNTER → 2025-07-08 | Outpatient (CLI) | payer OTHER, SELFPAY ==
[2025-07-08 14:06] LABS: Vitamin D,25 Hydroxy 30.3 ng/mL (30-100)
[2025-07-11 02:07] LABS: HPV APTIMA, High Risk Negative (Negative)
== END | disposition home or self-care (01) ==
LOC: LAB 12:17
PROVIDERS: PCP Internal Medicine; Referring Provider Nurse Practitioner Women's Health; Visit Provider Nurse Practitioner Women's Health
DX: E55.9 Vitamin D deficiency, unspecified (principal); Z12.4 Encounter for screening for malignant neoplasm of cervix
CPT/HCPCS: 36415; 82306; 87624; 88175; G0145